=== PATIENT | female | born 1995 | race Caucasian/White ===

== ENCOUNTER → 2020-11-06 | Outpatient (CLI) | payer BC, SELFPAY ==
[2020-11-09 03:07] LABS: Chlamydia By Nucleic Acid AMP Negative (Negative)
[2020-11-09 12:15] LABS: Gonococcus By Nucleic Acid AMP Negative (Negative)
[2020-11-09 15:44] LABS: HPV Reflexed? NOT INDICATED
== END | disposition home or self-care (01) ==
LOC: LABSPEC 15:40
PROVIDERS: Visit Provider Nurse Practitioner Women's Health
DX: Z12.4 Encounter for screening for malignant neoplasm of cervix (principal)
CPT/HCPCS: 87491; 87591; 88175; G0145

== ENCOUNTER 2021-05-24 13:28 | Outpatient (CLI) | payer BC, SELFPAY ==
[2021-05-24 14:02] LABS: Amphetamine Urine VISTA NEGATIVE (<1000 ng/mL); Barbiturate Urine VISTA NEGATIVE (< 200 ng/mL); Benzodiazepine Urine VISTA NEGATIVE (< 200 ng/mL); Cocaine Urine VISTA NEGATIVE (< 300 ng/mL); Ecstacy Urine VISTA NEGATIVE (< 500 ng/mL); Methadone Urine VISTA NEGATIVE (< 300 ng/mL); PCP Urine VISTA NEGATIVE (< 25 ng/mL); THC Urine VISTA NEGATIVE (< 50 ng/mL); Vista UDS pH Range 6
[2021-05-27 15:08] LABS: Chlamydia By Nucleic Acid AMP Negative (Negative)
[2021-05-27 20:52] LABS: Gonococcus By Nucleic Acid AMP Negative (Negative)
== END 2021-05-24 23:59 | disposition home or self-care (01) ==
LOC: LABSPEC 06-11 13:28
PROVIDERS: Visit Provider Obstetrics & Gynecology
DX: Z34.00 Encounter for supervision of normal first pregnancy, unspecified trimester (principal)
CPT/HCPCS: 80307; 87086; 87491; 87591

== ENCOUNTER → 2021-07-19 | Outpatient (CLI) | payer BC, SELFPAY ==
[2021-07-19 12:29] LABS: Absolute Lymphocyte Count 1.84 X10^3/uL (0.83-4.51); Absolute Neutrophil Count 7.1 X10^3/uL (2.0-7.7); Basophil# 0.05 X10^3/uL; Basophil% 0.5 % (0-1); Eosinophil# 0.18 X10^3/uL; Eosinophils% 1.8 % (0-5); Hematocrit 34.5 % (37-47); Lymphocyte # 1.84 X10^3/ul (0.83-4.51); Lymphocyte % 18.8 % (19-41); Mean Corp Hgb Conc 34.8 g/dL (32-36); Mean Corpuscular Hgb 30.6 pg (27.0-32.0); Mean Platelet Vol. 9.5 fl (6.2-12.0); Monocyte# 0.55 X10^3/uL; Monocyte% 5.6 % (0-10); NRBC Flagged by Analyzer 0 % (0-5); Neutrophil # 7.08 X10^3/uL (2.7-7.7); Neutrophil % 72.3 % (47-70); Platelet Count 252 K/mm3 (150-450); RBC Distribution Width CV 12.7 % (11.6-14.6); RBC Distribution Width SD 40.8 fl (35.1-43.9); Red Blood Count 3.92 M/mm3 (4.2-5.4); White Blood Count 9.8 K/mm3 (4.4-11.0)
[2021-07-19 14:11] LABS: HIV - WCH Non-Reactive (Nonreactive); Hepatitis B Surface Antigen Non-Reactive (Nonreactive); Hepatitis C Antibody Non-Reactive (Nonreactive); Rubella IgG Reactive (Nonreactive); Syphilis Antibodies Non-reactive
== END | disposition home or self-care (01) ==
LOC: PAVLAB 12:14
PROVIDERS: Obstetrics & Gynecology; Referring Provider Nurse Practitioner Women's Health; Visit Provider Nurse Practitioner Women's Health
DX: Z34.00 Encounter for supervision of normal first pregnancy, unspecified trimester (principal)
CPT/HCPCS: 36415; 85025; 86703; 86762; 86780; 86803; 86850; 86900; 86901; 87340

== ENCOUNTER 2021-09-20 17:25 | Emergency (ER) | payer BC, SELFPAY ==
[2021-09-20 17:26] VITALS: BP 123/75; PULSE 89; RESP 18; TEMP 36.6; O2SAT 99; BMI 23.0
--- NOTE | 2021-09-20 17:55 | NURSING ---
NO OLD EKGS
[2021-09-20 18:38] VITALS: PULSE 77; RESP 15; O2SAT 100
--- NOTE | 2021-09-20 19:23 | EDS_ITS ---
HPI History of Present Illness Chief Complaint: Chest Pain Informant: patient Onset/Context/Timing Onset: Weeks (1) Activity at onset: sudden Timing: Continuous Quality: Positive for Heaviness Location: Substernal and Right Parasternal Worsened By: - (Laying down) Relieved By: - (Sitting up) Associated Symptoms: Positive for Dyspnea, Cough, Acid Reflux and Palpitations; Negative for Nausea, Vomiting, Diaphoresis, Fever or Lightheadedness Narrative Narrative: Patient presents with chest pain that has been getting progressively worse over the past week. Patient describes it as a heaviness. Patient admits to some shortness of breath. Patient states she is approximately 22 weeks . Patient admits to a cough but denies any fevers. Patient states her chest pain is worse when she lays down and better when she sits up. Patient states the pain is over the substernal and bilateral parasternal area. Patient denies any nausea or vomiting. Patient denies any diaphoresis. Patient denies any lightheadedness or fevers. CVD Risk Factors: Positive for Family History 1' </=55; Negative for Hypertension, Diabetes, Hypercholesterolemia or Smoking PE Risk Factors: Negative for Recent Travel/Surgery, Recent Immobilization, Prior DVT or PE, Cancer or OCP + Smoking + >/=35 PFSH PFSH Medical History Influenza A Home Medications prenat.vits,sonia,rsd-jbjy-plsws 1 tab PO DAILY 05/13/21 [History Last Taken Unknown] Allergy/AdvReac Type Severity Reaction Status Date / Time No Known Allergies Allergy Verified 09/20/21 17:28 Family History Grandmother Breast cancer Father Heart disease Grandfather Heart disease Prostate cancer Surgical History History of eye surgery Social History adopted: No household members: spouse number of children: 0 current occupational status: employed current occupation: self - photography pets and animals: Yes (avoid litter box) pets and animals: cat(s) history of recent travel: Yes sexually active: Yes Smoking Status: Never smoker alcohol intake: current alcohol intake frequency: a few times a month details: not while substance use type: does not use well-balanced diet: daily or most days what type of physical activity do you participate in: running frequency: 1-2 times per week seatbelt use: always do you feel safe at home: Yes additional social history: - Felix Torres ROS ROS ED Constitutional Constitutional ED: Denies chills or fever(s) Eyes Eyes: Denies blurry vision or change in vision ENT ENT ED: Denies rhinorrhea or sore throat Cardiovascular Cardiovascular: Reports chest pain and palpitations Respiratory/Chest Respiratory/Chest: Reports dyspnea; Denies cough Gastrointestinal Gastrointestinal: Denies abdominal pain, nausea or vomiting Genitourinary Genitourinary ED: Denies dysuria or hematuria Musculoskeletal Musculoskeletal: Denies back pain or neck pain Integumentary Denies abscess or rash Neurologic Neurologic: Denies headache(s) or weakness Allergic/Immunologic Allergic/Immunologic ED: Denies mouth swelling or urticaria EXAM Physical Exam Const Vital Signs: 09/20/21 17:26 09/20/21 18:38 09/20/21 18:38 Temperature 97.9 F Temperature Source Temporal Pulse Rate 89 77 Respiratory Rate 18 15 Respiratory Effort Short of Breath Respiratory Pattern Normal Blood Pressure 123/75 H Blood Pressure Mean 91 Pulse Ox 99 100 Oxygen Delivery Method Room Air Room Air Positive well nourished and well developed General Appearance ED: well developed and NAD HEENT normocephalic and atraumatic Eyes PERRL and EOMs intact bilaterally Neck supple and no JVD Chest Wall palpation of chest normal Resp normal respiratory effort and clear to auscultation bilaterally Effort and Inspection: Negative for respiratory distress Cardio regular rate, regular rhythm and no murmurs GI normal to inspection, nondistended, normoactive bowel sounds, soft to palpation, non-tender and non-distended Extremity normal to inspection General Extremety ED: Negative for edema or tenderness General Extremity: Negative for edema Neuro oriented x3, CN's II-XII intact bilaterally and no sensory deficits noted Sensorium / Orientation: awake and alert Motor Exam: strength 5/5 throughout Psych mental status grossly normal MDM MDM MDM Narrative Medical decision making narrative: Patient was given IV fluids here. EKG was obtained. On my interpretation, it showed a normal sinus rhythm with a rate of 79. WI interval, QRS interval, and QTc intervals were all normal. [place] was normal. There are no acute ST or T wave changes. CBC was within normal limits. Comprehensive metabolic profile was within normal limits. High-sensitivity troponin was normal. Urinalysis does not show any evidence of urinary tract infection or hematuria. CTA of the chest was obtained. There is no evidence of pulmonary embolism or aortic dissection. Patient is feeling better on reevaluation. Patient was advised of her findings. Patient was instructed to follow-up with her primary care physician and HEAD NURSE in 5 to 7 days. Patient was instructed return if worse in any way. Patient understood and was agreeable with the plan. All questions were answered. Lab Data Attestation: I reviewed the patient's lab results. Labs: Laboratory Results - last 24 hr 09/20/21 09/20/21 09/20/21 18:37 18:37 19:46 WBC 7.2 RBC 3.28 L Hgb 10.1 L Hct 30.6 L MCV 93.3 MCH 30.8 MCHC 33.0 RDW Std Deviation 45.8 H RDW Coeff of Kamila 13.3 Plt Count 249 MPV 10.3 Immature Gran % (Auto) 1.000 H Neut % (Auto) 61.7 Lymph % (Auto) 28.0 [place] % (Auto) 7.2 Eos % (Auto) 1.7 Baso % (Auto) 0.4 Absolute Neuts (auto) 4.5 Absolute Lymphs (auto) 2.02 Nucleated RBC % 0 Sodium 137 Potassium 3.5 Chloride 107 Carbon Dioxide 24.0 Anion Gap 6 BUN 6 L Creatinine 0.57 Estim Creat Clear Calc 145.44 Est GFR (MDRD) Af Amer 165 Est GFR (MDRD) Non-Af 136 BUN/Creatinine Ratio 10.6 Glucose 77 Calcium 9.0 Total Bilirubin 0.20 AST 20 ALT 27 Alkaline Phosphatase 67 Troponin I High Sens < 3 L Total Protein 6.7 Albumin 3.0 L Globulin 3.7 Albumin/Globulin Ratio 0.8 L Urine Color Yellow Urine Clarity Sl Cldy Urine pH 7.0 Ur Specific [place] 1.010 Urine Protein Negative Urine Glucose (UA) Normal Urine Ketones 5 H Urine Occult Blood Negative Urine Nitrite Negative Urine Bilirubin Negative Urine Urobilinogen Normal Ur Leukocyte Esterase Negative Urine RBC 0 SEEN Urine WBC 0 SEEN Ur Squamous Epith Cells 0-5 SEEN Urine Bacteria 0 SEEN Urine Mucus 0 SEEN Radiography Diagnostic Testing: Clinical Impression(s) from Imaging Studies Chest CTA 09/20/21 19:28 IMPRESSION: No demonstrated pulmonary embolism or arterial dissection. Electronically Signed: Salo Lance MD at 20:36 EDT , EKG Initial EKG: Attestation: I personally reviewed and interpreted this EKG as follows: Interpretation: Sinus Rhythm (79) and No Acute Injury Pattern Prior EKG tracings: not available for review Prior: No Prior Discharge Plan Triage Chief Complaint: Chest Pain ED Provider: Napoleon Borden Dx/Rx/DC Orders Clinical Impression: Chest pain of uncertain etiology, Instructions: ED Chest Pain, Uncertain Cause Prescriptions: No Action prenat.vits,sonia,gfi-nmht-smiph Tablet 1 tab PO DAILY Primary Care Provider: Care Physician,No Primary Referrals: Chioma Weinstein MD [STAFF PHYSICIAN] - 3-5 Days Disposition Disposition: Home, Self Care
--- NOTE | 2021-09-20 19:27 | EKG12_ITS ---
Test Reason : CP Blood Pressure : / mmHG Vent. Rate : 079 BPM Atrial Rate : 079 BPM P-R Int : 144 ms QRS Dur : 070 ms QT Int : 372 ms P-R-T Axes : 036 030 036 degrees QTc Int : 426 ms Normal sinus rhythm Normal ECG Confirmed by SADE TILLMAN, THEODORE ([id number]), editor department JUDY VILLA ([id number]) on 09/25/2021 10:59:24 AM Referred By: KATHLEEN Confirmed By:THEODORE STUART MD
--- NOTE | 2021-09-20 19:28 | CT_ITS ---
EXAM: CT ANGIOGRAPHY CHEST WITHOUT AND WITH INTRAVENOUS CONTRAST CLINICAL INDICATION: Dyspnea Technologist Notes Other, SOB,CHEST HEAVINESS,PT 24 WEEKS AND WAS SHIELDED TECHNIQUE: Helically acquired angiography images were obtained of the chest without and with intravenous contrast. This CT exam was performed using one or more of the following dose reduction techniques: automated exposure control, adjustment of the mA and/or kV according to patient size, and/or use of iterative reconstruction technique. This report was created using Room report generation technology. MIP reconstructed images were created and reviewed. CONTRAST: IV 100mL Isovue-370 RADIATION DOSE: CTDIvol = 11.27 mGy, DLP = 269.86 mGy-cm COMPARISON: None. FINDINGS: PULMONARY ARTERIES: No demonstrated pulmonary embolism or arterial dissection. AORTA: Unremarkable. Normal in caliber. No evidence of dissection. GREAT VESSELS OF AORTIC ARCH: Unremarkable. Normal in caliber. No evidence of dissection. LUNGS AND PLEURAL SPACES: Unremarkable. No mass. No consolidation or edema. No pleural effusion or thickening. No pneumothorax. HEART: Unremarkable. Heart size is normal. No pericardial effusion. No signs of right heart strain, ratio of right ventricle to left ventricle measures less than 1. MEDIASTINUM: Unremarkable. No mediastinal or hilar adenopathy. Esophagus is unremarkable. No hiatal hernia. THYROID: Unremarkable. No thyroid lesions. BONES/JOINTS: Unremarkable. No suspicious lytic or blastic abnormality. CT/CTA Chest W/WO Contrast IMPRESSION: No demonstrated pulmonary embolism or arterial dissection. Electronically Signed: Salo Lance MD at 20:36 EDT ,
[2021-09-20] MEDS: 0.9% Normal Saline 1,000 ML 1000 ML IV (19:38)
[2021-09-20 19:56] LABS: Absolute Lymphocyte Count 2.02 X10^3/uL (0.83-4.51); Absolute Neutrophil Count 4.5 X10^3/uL (2.0-7.7); Basophil# 0.03 X10^3/uL; Basophil% 0.4 % (0-1); Eosinophil# 0.12 X10^3/uL; Eosinophils% 1.7 % (0-5); Hematocrit 30.6 % (37-47); Hemoglobin 10.1 g/dL (12.0-15.0); Lymphocyte # 2.02 X10^3/ul (0.83-4.51); Mean Corpuscular Hgb 30.8 pg (27.0-32.0); Mean Corpuscular Volume 93.3 fL (81-99); Mean Platelet Vol. 10.3 fl (6.2-12.0); Monocyte# 0.52 X10^3/uL; Monocyte% 7.2 % (0-10); NRBC Flagged by Analyzer 0 % (0-5); Neutrophil # 4.45 X10^3/uL (2.7-7.7); Neutrophil % 61.7 % (47-70); Platelet Count 249 K/mm3 (150-450); RBC Distribution Width CV 13.3 % (11.6-14.6); RBC Distribution Width SD 45.8 fl (35.1-43.9); Red Blood Count 3.28 M/mm3 (4.2-5.4); White Blood Count 7.2 K/mm3 (4.4-11.0)
[2021-09-20 20:05] LABS: Bacteria 0 SEEN /hpf (None Seen); Mucous, Urine 0 SEEN /hpf (<or=2+); Red Blood Cells-Urine 0 SEEN /hpf (0-5); White Blood Cells 0 SEEN /hpf (0-5)
[2021-09-20 20:16] LABS: ALB/GLOB Ratio 0.8 RATIO (0.9-2.4); AST(SGOT) 20 U/L (15-37); Alanine Aminotransfer ALT/SGPT 27 U/L (13-56); Alkaline Phosphatase 67 U/L (45-117); Anion Gap 6 (5-15); BUN 6 mg/dL (7-18); BUN/Creat Ratio 10.6 RATIO (10-20); Chloride 107 mmol/L (98-107); Creatinine, Serum 0.57 mg/dL (0.55-1.02); EST Glomerular Filtration Rate 136 mL/min (>60); Est Glom Filt Rate - Afr Amer 165 mL/min (>60); Estimated Creatinine Clearance 145.44 ml/min; Globulin 3.7 g/dL (2.2-4.2); Glucose 77 mg/dL (74-106); Potassium 3.5 mmol/L (3.5-5.1); Protein, Total 6.7 g/dL (6.4-8.2); Sodium Level 137 mmol/L (136-145); Troponin-I HS < 3 pg/mL (3.0-54.0)
[2021-09-20 20:22] LABS: Glucose, Dipstick Normal (Normal); Ketone-Dipstick 5 mg/dl (Negative); Leukocyte Esterase-Dipstick Negative /ul (Negative); Nitrite-Dipstick Negative (Negative); Occult Blood-Urine Negative /ul (Negative); Protein-Dipstick Negative (Negative); Urine Bilirubin Dipstick Negative (Negative); Urine Urobilinogen Normal (Normal)
[2021-09-20 20:24] LABS: Color, Urine Yellow (Yellow); Urine Clarity Sl Cldy (Clear)
[2021-09-20 21:05] LABS: Squamous Epithelial Cells - UA 0-5 SEEN /hpf (5-10)
[2021-09-20 21:24] VITALS: PULSE 73; RESP 17; O2SAT 100
== END 2021-09-20 21:25 | disposition home or self-care (01) ==
PROVIDERS: Emergency Provider Emergency Medicine; Visit Provider Emergency Medicine
DX: O99.891 Other specified diseases and conditions complicating pregnancy (principal); R07.9 Chest pain, unspecified; R06.02 Shortness of breath; Z3A.22 22 weeks gestation of pregnancy; Z82.49 Family history of ischemic heart disease and other diseases of the circulatory system
CPT/HCPCS: 71275; 80053; 81001; 84484; 85025; 87428; 93005; 96360; 96361; 99283; Q9967

== ENCOUNTER → 2021-10-09 | Outpatient (CLI) | payer BC, SELFPAY ==
[2021-10-09 09:53] LABS: Absolute Lymphocyte Count 1.58 X10^3/uL (0.83-4.51); Absolute Neutrophil Count 3.7 X10^3/uL (2.0-7.7); Basophil# 0.04 X10^3/uL; Basophil% 0.7 % (0-1); Eosinophils% 1.7 % (0-5); Hematocrit 30.8 % (37-47); Lymphocyte # 1.58 X10^3/ul (0.83-4.51); Lymphocyte % 26.4 % (19-41); Mean Corp Hgb Conc 32.5 g/dL (32-36); Mean Corpuscular Hgb 30.4 pg (27.0-32.0); Mean Corpuscular Volume 93.6 fL (81-99); Mean Platelet Vol. 9.6 fl (6.2-12.0); Monocyte% 6.7 % (0-10); NRBC Flagged by Analyzer 0 % (0-5); Neutrophil # 3.71 X10^3/uL (2.7-7.7); Platelet Count 212 K/mm3 (150-450); RBC Distribution Width CV 13.1 % (11.6-14.6); RBC Distribution Width SD 44.5 fl (35.1-43.9); Red Blood Count 3.29 M/mm3 (4.2-5.4)
[2021-10-09 10:06] LABS: Glucose Challenge Gest 1H 50g 175 mg/dL (70-140)
== END | disposition home or self-care (01) ==
LOC: PAVLAB 09:33
PROVIDERS: Referring Provider Obstetrics & Gynecology; Visit Provider Obstetrics & Gynecology
DX: Z34.90 Encounter for supervision of normal pregnancy, unspecified, unspecified trimester (principal)
CPT/HCPCS: 36415; 82950; 85025

== ENCOUNTER → 2021-10-16 | Outpatient (CLI) | payer BC, SELFPAY ==
[2021-10-16 08:42] LABS: Glucose GTT-Gestation. Fasting 84 mg/dL (<105)
[2021-10-16 10:04] LABS: Glucose GTT-Gestational 1 Hr 173 mg/dL (<190)
[2021-10-16 11:05] LABS: Glucose GTT-Gestational 2 Hr 139 mg/dL (<165)
[2021-10-16 11:39] LABS: Glucose GTT-Gestational 3 Hr 125 L (<145)
== END | disposition home or self-care (01) ==
PROVIDERS: Referring Provider Obstetrics & Gynecology; Visit Provider Obstetrics & Gynecology
DX: R69 Illness, unspecified (principal)
CPT/HCPCS: 82951; 82952

== ENCOUNTER → 2021-12-18 | Outpatient (CLI) | payer BC, SELFPAY | END | disposition home or self-care (01) | LOC: LABSPEC 16:54 | PROVIDERS: Visit Provider Registered Nurse | DX: Z36.85 Encounter for antenatal screening for Streptococcus B (principal) | CPT/HCPCS: 87081 ==

== ENCOUNTER → 2021-12-30 | Outpatient (CLI) | payer BC, SELFPAY ==
--- NOTE | 2021-12-30 08:27 | US_ITS ---
STUDY: SECOND AND THIRD TRIMESTER OBSTETRICAL ULTRASOUND - LIMITED REASON FOR EXAM: Female, 26 years old growth LMP: 04/10/2021. PRIOR ULTRASOUND: None. TECHNIQUE: Transabdominal TECHNICAL QUALITY: Adequate. FINDINGS: There is a single intrauterine fetus. The fetus is in a cephalic presentation. There is demonstrated cardiac activity with a heart rate of 132 bpm. There is a normal amniotic fluid volume. The largest amniotic fluid pocket measures 3.38 cm. The amniotic fluid index (NGOZI) is 8.29 cm. The placenta is anterior in location and is not low lying. There are Grade 1 placental changes. The cervix was not measured due to the head positioning. BIOMETRY: BPD: 8.84 cm: 35 weeks, 5 days HC: 32.8 cm: 37 weeks, 2 days AC: 34.02 cm: 37 weeks, 6 days FL: 7.18 cm: 37 weeks, 5 days Age by LMP: 37 weeks, 5 days. ADRIÁN by LMP: 01/15/2022. age by current US: 37 weeks, 1 days. ADRIÁN by current US: 01/19/2022. Estimated weight: 3191 grams, +/- 479 grams, 51 percentile. US/OB Limited With Biometrics IMPRESSION: Single live intrauterine gestation with a mean gestational age of 37 weeks and 1 day. Electronically Signed: Grayson Sanders MD at 15:26 EDT ,
== END | disposition home or self-care (01) ==
LOC: OPUS 08:23
PROVIDERS: Referring Provider Obstetrics & Gynecology; Visit Provider Obstetrics & Gynecology
DX: O26.843 Uterine size-date discrepancy, third trimester (principal); Z3A.37 37 weeks gestation of pregnancy
CPT/HCPCS: 76816

== ENCOUNTER → 2022-01-08 | Outpatient (CLI) | payer BC, SELFPAY ==
--- NOTE | 2022-01-08 10:38 | US_ITS ---
STUDY: SECOND AND THIRD TRIMESTER OBSTETRICAL ULTRASOUND - LIMITED REASON FOR EXAM: Female, 26 years old low NGOZI LMP: 04/10/2021 PRIOR ULTRASOUND: None. TECHNIQUE: Standard TECHNICAL QUALITY: Adequate. FINDINGS: There is a single intrauterine fetus. The fetus is in a cephalic presentation. There is demonstrated cardiac activity with a heart rate of 137 bpm. There is a normal amniotic fluid volume. The largest amniotic fluid pocket measures 2.7 cm. The amniotic fluid index (NGOZI) is 8.07 cm. The placenta is There are Grade 0 placental changes. Cervix is not imaged. Placenta is anterior and not low-lying. Adnexa are not visualized. age by prior ultrasound 38 weeks 3 days. Estimated date of delivery by prior ultrasound 01/19/2022. age by LMP 39 weeks 0 days. ADRIÁN by LMP 01/15/2022. US/OB Limited (No Biometrics) IMPRESSION: Single viable intrauterine gestation in cephalic presentation. cardiac activity observed at 1 37 bpm. NGOZI 8.06 which is at the lower limits of normal. Electronically Signed: Geo Kat MD, ZAK at 11:37 EDT ,
== END | disposition home or self-care (01) ==
LOC: US 10:26
PROVIDERS: Referring Provider Obstetrics & Gynecology; Visit Provider Obstetrics & Gynecology
DX: Z34.93 Encounter for supervision of normal pregnancy, unspecified, third trimester (principal)
CPT/HCPCS: 76815

== ENCOUNTER 2022-01-22 07:00 | Inpatient (IN) | payer BC, SELFPAY ==
[2022-01-22] VITALS (47 sets, daily range): BP systolic 109–137; BP diastolic 67–94; PULSE 70–98; TEMP 36.4–37.6; O2SAT 97–100; BMI 27.3
[2022-01-22] MEDS: Lactated Ringers 1,000 ML 50 ML IV (07:40)
[2022-01-22 07:58] LABS: Absolute Lymphocyte Count 1.96 X10^3/uL (0.83-4.51); Absolute Neutrophil Count 6.1 X10^3/uL (2.0-7.7); Basophil# 0.03 X10^3/uL; Basophil% 0.3 % (0-1); Eosinophils% 1.1 % (0-5); Hematocrit 32.8 % (37-47); Hemoglobin 10.9 g/dL (12.0-15.0); Lymphocyte # 1.96 X10^3/ul (0.83-4.51); Lymphocyte % 22.4 % (19-41); Mean Corp Hgb Conc 33.2 g/dL (32-36); Mean Corpuscular Hgb 29.1 pg (27.0-32.0); Mean Corpuscular Volume 87.5 fL (81-99); Mean Platelet Vol. 12.2 fl (6.2-12.0); Monocyte# 0.51 X10^3/uL; Monocyte% 5.8 % (0-10); NRBC Flagged by Analyzer 0 % (0-5); Neutrophil # 6.06 X10^3/uL (2.7-7.7); Neutrophil % 69.4 % (47-70); Platelet Count 219 K/mm3 (150-450); RBC Distribution Width CV 14.4 % (11.6-14.6); RBC Distribution Width SD 45.8 fl (35.1-43.9); Red Blood Count 3.75 M/mm3 (4.2-5.4); White Blood Count 8.8 K/mm3 (4.4-11.0)
[2022-01-22] MEDS: miSOPROStol 50 MCG TABLET BUCCAL (08:17)
--- NOTE | 2022-01-22 08:21 | HP.PCM.OB_ITS ---
HPI - General General Date of Admission: 01/22/22 HPI Narrative RONEY TORRES, is a 26 F who presents to labor and delivery for induction of labor at 41 weeks. course complicated by anemia on iron supplementation. Maternal Data Information ADRIÁN Calculator Estimated Delivery Date Method Current WG Current Estimate 01/15/22 Ultrasound #1 41w 0d Other Estimates 12/13/21 LMP (Uncertain) 45w 5d Final ADRIÁN Source: US <20 weeks Gestational age: 41 PFSH PFSH Medical History Influenza A Home Medications prenat.vits,sonia,sxw-nmyv-jfyks 1 tab PO DAILY Check with primary doctor 05/13/21 [History Last Taken 01/19/22] iron fum,pscplx 125 mg-folic acid 1 mg-vit C 40 mg-niacin 3 mg capsule (Integra F) 1 cap PO DAILY Check with primary doctor 01/22/22 [History Last Taken 01/21/22] Allergy/AdvReac Type Severity Reaction Status Date / Time No Known Allergies Allergy Verified 01/22/22 07:50 Family History Grandmother Breast cancer Father Heart disease Grandfather Heart disease Prostate cancer Surgical History History of eye surgery Social History adopted: No household members: spouse number of children: 0 current occupational status: employed current occupation: self - photography pets and animals: Yes (avoid litter box) pets and animals: cat(s) history of recent travel: Yes sexually active: Yes Smoking Status: Never smoker alcohol intake: current alcohol intake frequency: a few times a month details: not while substance use type: does not use well-balanced diet: daily or most days what type of physical activity do you participate in: running frequency: 1-2 times per week seatbelt use: always do you feel safe at home: Yes additional social history: - Felix Torres History 1 Elective abortions Hx Para 0 Spontaneous abortions Hx # Term Pregnancies Ectopic pregnancies Hx # Pregnancies Multiple births # of living children Visit Details Expected Delivery Route/Plan Labor Preferences- CB/BF classes: declined labor support person: felix mom- nicki (from [place]) labor intervention preferences: none pain management options preferred: epidural cut cord/dad catch: yes : pumping PP control planned: condom discussed possible routes of delivery and associated risks: [] special requests: [] Plans Covid status: declined Flu vaccine: declined Tdap vaccine: declined Rhogam: na LARC form signed: na movement and labor precautions reviewed. Problem list reviewed and updated with the most current plan of care details and appropriate orders placed. Relevant counseling for the gestational age provided. Continue routine care and follow up unless otherwise noted in visit notes/problem list details OB Flowsheet Initial Weight: Not Recorded Date -?-?-?-?-?-?-?-?-?-?-?-?- EGA Weight BP Urine Prot -?-?-?-?-?-?-?-?-?-?-?-?- Glucose FHR FuHt Pres Dilation -?-?-?-?-?-?-?-?-?-?-?-?- Effaced St Visit Note 05/24/21 -?-?-?-?-?-?-?-?-?-?-?-?- 6w 2d 144 lb 122/86 -?-?-?-?-?-?-?-?-?-?-?-?- -?-?-?-?-?-?-?-?-?-?-?-?- JV- CRL difficul t to completely see . only measuring 6w2d. would like to rpt scan in 2 weeks. JV- CRL difficult to complet avery see . only measuring 6w2d. would like to rpt scan in 2 weeks. polycystic appearing ovaries seen on scan 06/12/21 -?-?-?-?-?-?-?-?-?-?-?-?- 9w 0d 141 lb 2 oz 111/71 Nega tive -?-?-?-?-?-?-?-?-?-?-?-?- Negative 189 -?-?-?-?-?-?-?-?-?-?-?-?- JV- CRL now john ures 9 weeks 4 days. pt reassured. will not change set due date. pt declines genetic screening. needs new ob labs. 07/19/21 -?-?-?-?-?-?-?-?-?-?-?-?- 14w 2d 146 lb 2 oz 128/86 Nega tive -?-?-?-?--?-?-?-?-?-?-?-?- Negative 163 -?-?-?-?-?-?-?-?-?-?-?-?- MH-No Vb, LOF. P NL today. Brief US to confirm active IUP 08/16/21 -?-?-?-?-?-?-?-?-?-?-?-?- 18w 2d 147 lb Negative -?-?-?-?-?-?-?-?-?-?-?-?- Negative 157 -?-?-?-?-?-?-?-?-?-?-?-?- JV- no lof, vagi nal bleeding or cramping. anatomy scan ordered for next week. 09/13/21 -?-?-?-?-?-?-?-?-?-?-?-?- 22w 2d 149 lb 114/78 Negative -?-?-?-?-?-?-?-?-?-?-?-?- Negative 150 -?-?-?-?-?-?-?-?-?-?-?-?- SM- no vb lof go od fm no regular ctx 10/09/21 -?-?-?-?-?-?-?-?-?-?-?-?- 26w 0d 156 lb 112/60 Negative -?-?-?-?-?-?-?-?-?-?-?-?- Negative 152 -?-?-?-?-?-?-?-?-?-?-?-?- JV- pt failed gl [place] at level of 175. option to skip gtt and do testing offered and declined. will order 3 hr. and start iron. 10/30/21 -?-?-?-?-?-?-?-?-?-?-?-?- 29w 0d 158 lb 4 oz 118/72 Nega tive -?-?-?-?-?-?-?-?-?-?-?-?- Negative 133 30 -?-?-?-?-?-?-?-?-?-?-?-?- JV- normal gtt. pt worried parents in [place] will miss delivery. wants to discuss IOL. pt informed of acog guidelines, 11/13/21 -?-?-?-?-?-?-?-?-?-?-?-?- 31w 0d 160 lb 6 oz 110/62 Nega tive -?-?-?-?-?-?-?-?-?-?-?-?- Negative 130 32 -?-?-?-?-?-?-?-?-?-?-?-?- JV-no lof, v harshad nal bleeding, or dec fm. 11/29/21 -?-?-?-?-?-?-?-?-?-?-?-?- 33w 2d 161 lb 4 oz 123/81 Nega tive -?-?-?-?-?-?-?-?-?-?-?-?- Negative 46 32 -?-?-?-?-?-?-?-?-?-?-?-?- JV- no lof, vagi nal bleeding, or dec fm. 12/12/21 -?-?-?-?-?-?-?-?-?-?-?-?- 35w 1d 166 lb 114/78 -?-?-?-?-?-?-?-?-?-?-?-?- 130 35 Cephalic -?-?-?-?-?-?-?-?-?-?-?-?- SM- no vb lof go od fm no regualr ctx 12/18/21 -?-?-?-?-?-?-?-?-?-?-?-?- 36w 0d 167 lb -?-?-?-?-?-?-?-?-?-?-?-?- 140 36 Cephalic 0 -?-?-?-?-?-?-?-?-?-?-?-?- 20 -2 LC- no vb, lof or ctx. good fm. gbs collected. labor precautions provided. 12/27/21 -?-?-?-?-?-?-?-?-?-?-?-?- 37w 2d 165 lb 8 oz 136/85 Nega tive -?-?-?-?-?-?-?-?-?-?-?-?- Negative 135 33 Cephalic 0 -?-?-?-?-?-?-?-?-?-?-?-?- JV-ngozi is 10 bu t on bedside ac and hc are measuring 34 weeks. Nst reactive. plan for official growth scan thursday. 01/03/22 -?-?-?-?-?-?-?-?-?-?-?-?- 38w 2d 170 lb 122/88 Negative -?-?-?-?-?-?-?-?-?-?-?-?- Negative 144 35 Cephalic 0 -?-?-?-?-?-?-?-?-?-?-?-?- SM- no vb lof go od fm no regualr ctx bedside ngozi 6 cm ordered repeat for next week 01/10/22 -?-?-?-?-?-?-?-?-?-?-?-?- 39w 2d 169 lb 2 oz 132/85 Nega tive -?-?-?-?-?-?-?-?-?-?-?-?- Negative 145 35 Cephalic 0 -?-?-?-?-?-?-?-?-?--?-?-?- -2 JV- no l of, vaginal bleeding, or dec fm. cx still very closed and firm. will re-assess. next week. NGOZI 2 days ago was 8 and growth scan 51st% 01/15/22 -?-?-?--?-?-?-?-?-?-?-?-?- 40w 0d 170 lb 6 oz 118/78 -?-?-?-?-?-?-?-?-?-?-?-?- 143 38 Cephalic 0 -?-?-?-?-?-?-?-?-?-?-?-?- LC- doing well. active movement. no lof,vb or ctx. cervix unchanged. discussed IOL at 41 weeks and accepts. NST FHR Rate Baby A Variability:: Moderate Accelerations:: 15 x 15 Decelerations:: None NST Reactive:: Yes FHR Category:: Category I Uterine Activity:: pt not feeling uterine contractions. irregular ctx pttn. q5-6 minutes ROS Cardiovascular Cardiovascular: Denies abdominal pain, chest pain, diaphoresis, dyspnea, edema or fatigue Respiratory/Chest Respiratory/Chest: Denies change in mental status, chest congestion, chest tightness, cough, shortness of breath at rest, shortness of breath with exertion, breast mass, breast pain, breast skin changes, breast swelling, change in breast shape or nipple discharge Gastrointestinal Gastrointestinal: Denies diarrhea, hemorrhoids, nausea, vomiting or weight changes Genitourinary Genitourinary: Denies abdominal discomfort, burning urination, change in libido, change in urinary stream, contractions, difficulty urinating, dysuria, movement, low back pain, urinary frequency, urinary hesitancy, urinary incontinence or urinary urgency Musculoskeletal Musculoskeletal: Reports none Integumentary Integumentary: Reports none Neurologic Neurologic: Reports none Psychiatric Psychiatric: Reports none Endocrine Endocrinology: Reports none Hematologic/Lymphatic Hematologic/Lymphatic: Reports none Allergic/Immunologic Allergic/Immunologic: Reports none Vital Signs Vital Signs Vital Signs: 01/22/22 07:25 01/22/22 07:25 01/22/22 07:26 Temperature 99.0 F Temperature Source Pulse Rate 90 Blood Pressure 134/92 H BP Systolic 134 BP Diastolic 92 01/22/22 07:26 Temperature Temperature Source Temporal Pulse Rate Blood Pressure BP Systolic BP Diastolic Weight Weight: 169 lb 6 oz Body Mass Index (BMI) 27.3 Physical Exam Const alert, oriented x3 and no apparent distress General Appearance: cooperative, comfortable and well kempt; Negative for in distress Orientation / Consciousness: awake and oriented to person Exam Limitations: no limitations HEENT normocephalic Mouth: oral and palatal mucosa normal Neck full ROM and thyroid normal Chest inspection of chest normal Resp normal respiratory effort Effort and Inspection: able to speak in complete sentences and symmetric chest movement Cardio regular rate Peripheral Pulses: pulses 2+ throughout GI normal to inspection, nondistended, normoactive bowel sounds Inspection: gravid no CVA tenderness and appearance of the vagina normal External Female Exam: normal appearance of the urethra; Negative for external lesion OB / External & Speculum: external exam normal Manual OB Exam: estimated gestational size appropriate and presentation cephalic Uterus Palpation: Negative for uterus tender Extremity normal to inspection Skin no rashes or lesions noted Neuro deep tendon reflexes 2+ bilaterally and gait normal Motor Exam: strength 5/5 throughout and clonus absent Psych Activity / Motor Behavior: appropriate eye contact Speech: normal speech Labs Labs Labs: Blood Type O POSITIVE Antibody Screen NEGATIVE Hct 32.8 % (37-47) L Hgb 10.9 g/dL (12.0-15.0) L Obstetrics US Syphilis Total Ab Non-reactive Rubella IgG Antibody Reactive (Nonreactive) Hep Bs Antigen Non-Reactive (Nonreactive) Chlamydia DNA ([place]) Negative (Negative) Neisseria gonorrhoeae DNA ([place]) Negative (Negative) HIV 1&2 Antibody Non-Reactive (Nonreactive) Glucose 1 Hr 50 gm 175 mg/dL (70-140) H Assessment & Plan (1) : QUALIFIERS: Weeks of gestation: 40 weeks Qualified Code(s): Z3A.40 - 40 weeks gestation of COMMENT: gbs negative. anatomy nl addtnl views nl, genetic and carrier, ntd screen declined. (2) Supervision of normal first : QUALIFIERS: Trimester: third trimester Qualified Code(s): Z34.03 - Encounter for supervision of normal first , third trimester COMMENT: PRR ADRIÁN 01/15/22 boy Carter Spouse:Felix (3) Anemia affecting : COMMENT: hgb 10.0 stable, on iron (4) Abnormal glucose affecting : COMMENT: 1hrgtt 175, 3hrgtt nl (5) NGOZI (amniotic fluid index) borderline low: COMMENT: repeat ngozi ordered. NGOZI=8, borderline normal. fundal heights c/w EGA on 01/15 (6) Encounter for induction of labor: COMMENT: IOL for 41weeks PLAN: -admit for IOL, Cytotec for cervical ripening per protocol -routine admission orders -reactive NST, reassuring maternal and status. Dr. Kaufman updated on POC and agrees with above.
[2022-01-22] MEDS: LACTATED RINGERS 500 ML 999 ML IV (13:32)
[2022-01-22] MEDS: fentaNYL-bupivacaine (epidural) 100 ML BAG EPIDURAL ×3 (14:29→23:36)
[2022-01-22] MEDS: 0.9% Normal Saline Single 100 ML IV.SOLN. INTRA-UTER (17:02)
[2022-01-22] MEDS: Lactated Ringers 1,000 ML 200 ML IV ×2 (17:50→22:45)
[2022-01-22] MEDS: Ondansetron 4 MG/2 ML Vial IV (22:31)
--- NOTE | 2022-01-22 23:03 | PN.OBGYN_ITS ---
Objective Data Objective Data Vital Signs: Vital Signs Temp Pulse BP Pulse Ox 99.0 F 81 124/81 H 99 01/22/22 22:43 01/22/22 22:43 01/22/22 22:43 01/22/22 22:42 Weight: 169 lb 6 oz Body Mass Index (BMI) 27.3 Intake & Output: Intake and Output for Last 24 Hours 01/20/22 01/21/22 01/22/22 23:59 23:59 23:59 Intake Total 2473.33 / 2473.33 Output Total 400 / 400 Balance 2073.33 / 2073.33 Lab / Micro Data Result Diagrams: 01/22/22 07:35 Labs: Laboratory Results - last 24 hr 01/22/22 07:35: WBC 8.8, RBC 3.75 L, Hgb 10.9 L, Hct 32.8 L, MCV 87.5, MCH 29.1, MCHC 33.2, RDW Std Deviation 45.8 H, RDW Coeff of Kamila 14.4, Plt Count 219, MPV 12.2 H, Immature Gran % (Auto) 1.000 H, Neut % (Auto) 69.4, Lymph % (Auto) 22.4, [place] % (Auto) 5.8, Eos % (Auto) 1.1, Baso % (Auto) 0.3, Absolute Neuts (auto) 6.1, Absolute Lymphs (auto) 1.96, Nucleated RBC % 0 01/22/22 07:35: Blood Type O POSITIVE, Antibody Screen NEGATIVE NST FHR Rate Baby A Baseline: 130 Variability:: Moderate Accelerations:: 15 x 15 Decelerations:: Early NST Reactive:: Yes FHR Category:: Category I Uterine Activity:: q2-3 minutes Assessment & Plan (1) Encounter for induction of labor: COMMENT: IOL for 41weeks (2) NGOZI (amniotic fluid index) borderline low: COMMENT: repeat ngozi ordered. NGOZI=8, borderline normal. fundal heights c/w EGA on 01/15 (3) Anemia affecting : COMMENT: hgb 10.0 stable, on iron (4) : QUALIFIERS: Weeks of gestation: 40 weeks Qualified Code(s): Z3A.40 - 40 weeks gestation of COMMENT: gbs negative. anatomy nl addtnl views nl, genetic and carrier, ntd screen declined. (5) Supervision of normal first : QUALIFIERS: Trimester: third trimester Qualified Code(s): Z34.03 - Encounter for supervision of normal first , third trimester COMMENT: PRR ADRIÁN 01/15/22 boy Raul Spouse:Felix PLAN: Plan pt comfortable with epidural. tierney bulb out at 2220. intermittent nausea current tracing:cat 1 tracting FHT: 135 Moderate variability reactive no decelerations category I tracing. occ early decelerations [place]: Contractions reviewed tracing abnormalities since last note: [ ] A/P: 26 yo at 41.1 for postdates IOL. s/p cytotec 50mcg and tierney bulb. Active labor AROM for clear blood tinged fluid. 6cm/80/0 if ctx space to 6-7 minutes would add pitocin
[2022-01-23] VITALS (29 sets, daily range): BP systolic 105–138; BP diastolic 64–95; PULSE 70–109; RESP 16; TEMP 36.7–38.1; O2SAT 97–100
[2022-01-23] MEDS: Acetaminophen 500 MG Tablet PO (01:23)
[2022-01-23] MEDS: Oxytocin 15 Units/NS 250ml 15 UNITS/250 ML IV.SOLN 2 UNITS IV (03:00)
[2022-01-23] MEDS: LACTATED RINGERS 500 ML 999 ML IV (03:40)
[2022-01-23] MEDS: Lactated Ringers 1,000 ML 200 ML IV (04:17)
[2022-01-23] MEDS: fentaNYL-bupivacaine (epidural) 100 ML BAG EPIDURAL (04:35)
--- NOTE | 2022-01-23 05:36 | PN_ITS ---
Progress Note [employer] called at 0500 to report that the tracing has been showing late, early, and variable decels since about 3:30 in the morning. Pitocin was tried but had to be turned off. She has been unchanged since 11 pm last night. After thorough review of the tracing it is decided to proceed with a primary section both for failure to progress and for intolerance to pitoin. current tracing: FHT: currently Moderate variability reactive with 2 late decelerations out of 7 contractions. decelerations category II tracing [place]: q 2-5 min Contractions A/P: intolerance to pitocin and failure to progress plan for primary section now. the risks, benefits, and alternatives were discussed with the patient. option to wait longer and restart pitocin later this am discussed with the patient. I informed her that we do not have a lot hope that this will not happen again when starting pitocin again as I suspect placental insufficiency
[2022-01-23] MEDS: Sodium Citrate/Citric Acid 30 ML UDC PO (05:37)
[2022-01-23] MEDS: Cefazolin 2 GM in 0.9% Normal Saline 100 ML IV (06:18)
[2022-01-23] MEDS: Oxytocin 15 Units/NS 250ml 15 UNITS/250 ML IV.SOLN 83 UNITS IV (06:58)
[2022-01-23] MEDS: Ketorolac 30 MG/ML Syringe IV ×3 (07:26→18:36)
[2022-01-23] MEDS: Acetaminophen 500 MG Tablet 1000 MG PO ×3 (07:40→18:36)
--- NOTE | 2022-01-23 08:21 | NURSING ---
Bedside report given to Rose Diamond RN at 0705; oncoming RN assuming care of pt at that time. Late entry charting due to pt care.
[2022-01-23] MEDS: Lactated Ringers 1,000 ML 100 ML IV (10:01)
--- NOTE | 2022-01-23 12:42 | OP.PCM_ITS ---
Assessment & Plan (1) NGOZI (amniotic fluid index) borderline low: COMMENT: repeat ngozi ordered. NGOZI=8, borderline normal. fundal heights c/w EGA on 01/15 (2) Abnormal glucose affecting : COMMENT: 1hrgtt 175, 3hrgtt nl (3) Anemia affecting : COMMENT: hgb 10.0 stable, on iron (4) : QUALIFIERS: Weeks of gestation: 40 weeks Qualified Code(s): Z3A.40 - 40 weeks gestation of COMMENT: gbs negative. anatomy nl addtnl views nl, genetic and carrier, ntd screen declined. (5) Supervision of normal first : QUALIFIERS: Trimester: third trimester Qualified Code(s): Z34.03 - Encounter for supervision of normal first , third trimester COMMENT: PRR ADRIÁN 01/15/22 caridad Carter Spouse:Felix Maternal Data Information ADRIÁN Calculator Estimated Delivery Date Method Current WG Current Estimate 01/15/22 Ultrasound #1 41w 1d Other Estimates 12/13/21 LMP (Uncertain) 45w 6d Final ADRIÁN: 01/15/22 Final ADRIÁN Source: [place] <20 weeks Gestational age: 41 weeks 1 day Details Operative Information Date of Procedure: 01/23/22 Pre-Operative Diagnosis: 41 weeks 1 day, failure to dilate and intolerance to labor Post-Operative Diagnosis: 41 weeks 1 day, failure to dilate and intolerance to labor Indications for : Sec. Arrest of Dilitation and - Classification: ULISES Procedure Type: low transverse economic development specialist #1: Sanjuana Mario Type of Anesthesia: Epidural Anesthesiologist: Cesar Martin Antibiotic Given: Ancef 2 grams IV x1 Drain: Tierney to straight drain Estimated Blood Loss: 500cc Findings Description of Procedure: The patient was admitted for Induction of labor on 01/22/22 for post dates . The cervix was closed at 7 am and she was given 50 mcg of buccal cytotec which achieved adequate contractions. at 6 pm she was found to be only 1 cm dilated. A tierney bulb was placed at this time. At 11 pm her catheter came out spontaneously and membranes were ruptured. At that time she was found to be 5 cm dilated. Throughout the night she continue to have frequent contractions but not changing cervix. Pitocin was given at around 3:00 am. At that time the heart rate started to show signs of late, early, and variable decels. The pitocin was stopped and irregular contractions with late and variable decelerations continued. At 5am the software support representative then called the attending physician to report that the patient was not changing her cervix and the tracing was non-reassuring. It was at that time that the patient was evaluated and the decision was made to proceed with a section. Epidural anesthesia was found to be adequate, Tierney catheter was in placed, and a vaginal prep was performed. The patient was placed in the dorsal supine position with leftward tilt. Patient was prepped and draped in the normal sterile fashion. Pfannenstiel skin incision was made with the scalpel and carried through to the underlying layer of fascia with the scalpel. Fascia was nicked in the midline and the incision extended laterally. The rectus bellies were dissected off superiorly and inferiorly with out complication both sharply and bluntly. The peritoneum was entered digitally. The incision was stretched and a low transverse uterine incision was made with the scalpel. The 's head was delivered atraumatically followed by the anterior and posterior shoulders without complication the rest of the infant delivered. The cord was clamped and cut and the infant was handed off to awaiting nurse. The placenta was delivered spontaneously immediately following and was noted to be intact and have a three-vessel cord. The uterus was exteriorized cleared of all clots and debris, and the incision was closed in a double layer closure using #1 vicryl and #1 Monocryl. The ovaries and fallopian tubes were noted to be within normal limits. The uterus was returned to the maternal abdomen and gutters were cleared of all clots and debris. The peritoneum was closed with 3-0 Monocryl in a running fashion. Gloves were changed prior to fascial closure. Fascia was closed with 0 PDS in a running fashion. Subcutaneous tissue was copiously irrigated and the skin was closed with 3-0 Monocryl in a subcuticular fashion. Mepilex dressing was applied without complication. Patient was taken to recovery in stable condition. It was discussed with the patient that based on the clinical information obtained during this encounter, combined with her his tory, at this time I would recommend either or rpt sections for future deliveries if further pregnancies are desired. Presentation: Positive for Vertex Amniotic Membrane Rupture Type: Artificial Time of Membrane Ruptured: 11:00 pm Amniotic Fluid Description: Lightly stained meconium Placental Delivery Description: Expressed Placenta Disposition: [facility] Cord Vessel Description: 3 Vessels Cord Entanglement: None Infant A Gender: Male (1 minute): 9 (5 minute): 9 Delayed Cord Clamping: No Complications Risks of Surgery Discussed w/Patient: Bleeding, Anesthesia Risks, Infection, Need for Future C-Sections and Injury to surrounding structure(s) including bowel and bladder Admit VTE Documentation VTE Present on Admission: Yes VTE Mechan Device Prophylaxis: SCD's VTE Pharm Prophylaxis Ordered: No Reason Prophylaxis Not Ordered: Procedure Not Indicated Multi Select Codes Urinary/Genital Urinary/Genital CPT Codes: [address] [facility]
--- NOTE | 2022-01-23 12:51 | DCINST_ITS ---
Discharge Instructions Diet Discharge Diet: No restrictions Activity Discharge Activity: May Not Drive (for 2 weeks or while taking narcotic pain medications.), May Shower and May Take a Tub Bath (in 7 days.) May resume sexual activity in: 4-6 weeks Weight Bearing Status: Full weight bearing Lifting Restrictions: 20 pounds Dressing / Incision Call your doctor if your incision/area has: Continuous Slow Oozing, Sudden Increased Bleeding, Increased Pain/ Swelling, Increased Redness and Foul Smelling Discharge Call your doctor if you observe: Fever of 101 or Higher and Using more than 1 pad per hour Suture Line Care: Avoid Pulling/Pushing and Avoid Pinching/Bending Cleanse incision/area with: Soap & Water and Keep Dressing Clean & Dry Follow Up Care Please Follow Up With: Eliana Kaufman DO When: Call [phone] to make an appointment for an incision check in 1-2 weeks. Test Results: Test results from this visit will be discussed in further detail at your follow- up appointment, if applicable. Discharge Plan Admission Admit Date/Time: 01/22/22 07:00 Primary Reason for Your Visit: section Attending Provider: Bita Rea Primary Care Provider: Sameera Ramos Primary Discharge Orders/Prescriptions Prescriptions: New naproxen 500 mg tablet 500 mg PO BID PRN PRN (Reason: Pain) Qty: 30 0RF No Action prenat.vits,sonia,[id number]-[id number] Tablet 1 tab PO DAILY Integra F 125-1-40-3 mg capsule 1 cap PO DAILY Rx Instructions: administer between meals Referrals / Follow Up: Care Physician,No Primary [Primary Care Provider] - Disposition Disposition (needs filled in before D/C Order can be placed): Home, Self Care
[2022-01-24] MEDS: Acetaminophen 500 MG Tablet 1000 MG PO ×4 (01:42→20:16)
[2022-01-24] MEDS: Ketorolac 30 MG/ML Syringe IV (01:42)
[2022-01-24] MEDS: 0.9% Saline Lock 10 ML Syringe IV ×3 (01:43→13:02)
[2022-01-24 04:40] VITALS: BP 133/83; PULSE 102; RESP 16; TEMP 36.8; O2SAT 98
[2022-01-24 05:57] LABS: Hemoglobin 6.1 g/dL (12.0-15.0); Mean Corp Hgb Conc 32.1 g/dL (32-36); Mean Corpuscular Volume 90.5 fL (81-99); Mean Platelet Vol. 10.9 fl (6.2-12.0); Platelet Count 144 K/mm3 (150-450); RBC Distribution Width CV 14.6 % (11.6-14.6); RBC Distribution Width SD 47.6 fl (35.1-43.9); White Blood Count 9.1 K/mm3 (4.4-11.0)
[2022-01-24 08:10] VITALS: BP 126/88; PULSE 91; RESP 16; TEMP 36.7; O2SAT 98
[2022-01-24] MEDS: Ibuprofen 600 MG Tablet PO ×3 (08:15→20:16)
[2022-01-24 08:40] LABS: Hematocrit 19.4 % (37-47); Hemoglobin 6.2 g/dL (12.0-15.0)
--- NOTE | 2022-01-24 11:19 | PCM.PN.OB ---
Subjective Subjective Patient is laying in bed comfortably without complaints. She states that she slept on an off during the night. Lochia is mild and pain is minimal. Her hg came back at a 6.1 this am but she denies feeling dizzy or short of breath. she denies abdominal pain or distention. Objective Data Objective Data Vital Signs: Vital Signs Temp Pulse Resp BP Pulse Ox O2 Del Method 98.2 F 102 H 16 133/83 H 98 Room Air 01/24/22 04:40 01/24/22 04:40 01/24/22 04:40 01/24/22 04:40 01/24/22 04:40 01/24/22 04:40 Oxygen Delivery Method Room Air Weight: 169 lb 6 oz Body Mass Index (BMI) 27.3 Intake & Output: Intake and Output for Last 24 Hours 01/22/22 01/23/22 01/24/22 23:59 23:59 23:59 Intake Total 2473.33 / 2473.33 3662.33 / 3662.33 Output Total 400 / 400 500 / 500 400 / 400 Balance 2073.33 / 2073.33 3162.33 / 3162.33 -400 / -400 Lab / Micro Data Result Diagrams: 01/24/22 08:30 Labs: Laboratory Results - last 24 hr 01/24/22 05:52: WBC 9.1, RBC 2.10 L, Hgb 6.1 L, Hct 19.0 L, MCV 90.5, MCH 29.0, MCHC 32.1, RDW Std Deviation 47.6 H, RDW Coeff of Kamila 14.6, Plt Count 144 L, MPV 10.9 01/24/22 08:30: Hgb 6.2 L, Hct 19.4 L ROS Constitutional Constitutional: Reports systems reviewed and no addt'l complaints, except as documented Cardiovascular Cardiovascular: Denies chest pain, dizziness, dyspnea or irregular heart rhythm Respiratory/Chest Respiratory/Chest: Denies cough, pain on inspiration or shortness of breath at rest Gastrointestinal Gastrointestinal: Denies abdominal pain, nausea or vomiting Genitourinary Genitourinary: Denies burning urination Musculoskeletal Musculoskeletal: Denies muscle cramps, muscle spasms or muscle weakness Neurologic Neurologic: Denies confusion, dizziness, headache(s) or lack of coordination Psychiatric Psychiatric: Denies anxiety, behavioral changes or depression Physical Exam HEENT normocephalic Resp normal respiratory effort and normal air movement GI soft to palpation, non-tender and non-distended Rectal Exam: other Other Details: Incision is clean, dry, and intact no CVA tenderness Extremity normal to inspection General Extremity: edema bilateral (trace ) Assessment & Plan (1) Status post section: COMMENT: marely caridad lance - SelinaV PLAN: Plan s/p LTCS PPD # 1 1. routine post care 2. breast feeding- support given 3. rh positive 4. rubella immune 5. anemia on 2 separate blood draws but no signs of internal bleeding and patient is asymptomatic. will start with iron infusion today and tomorrow. recheck hg in am.
[2022-01-24] MEDS: Senna/Docusate Sodium 1 Tablet PO (12:07)
[2022-01-24 15:29] VITALS: BP 134/83; PULSE 103; RESP 16; TEMP 36.6; O2SAT 98
[2022-01-24 20:15] VITALS: BP 134/90; PULSE 101; RESP 17; TEMP 36.9; O2SAT 99
[2022-01-24 20:30] VITALS: BP 123/72
[2022-01-25] VITALS (8 sets, daily range): BP systolic 112–127; BP diastolic 76–88; PULSE 74–95; RESP 16–19; TEMP 36.5–37; O2SAT 97–99
[2022-01-25] MEDS: Acetaminophen 500 MG Tablet 1000 MG PO ×3 (02:18→14:29)
[2022-01-25] MEDS: Ibuprofen 600 MG Tablet PO ×3 (02:18→14:29)
[2022-01-25] MEDS: 0.9% Saline Lock 10 ML Syringe IV (05:00)
[2022-01-25 05:15] LABS: Hematocrit 18.4 % (37-47); Mean Corp Hgb Conc 32.1 g/dL (32-36); Mean Corpuscular Hgb 28.9 pg (27.0-32.0); Mean Corpuscular Volume 90.2 fL (81-99); Mean Platelet Vol. 10.9 fl (6.2-12.0); POSITIVE COUNT YES; Platelet Count 170 K/mm3 (150-450); RBC Distribution Width CV 14.9 % (11.6-14.6); RBC Distribution Width SD 49.5 fl (35.1-43.9); Red Blood Count 2.04 M/mm3 (4.2-5.4); White Blood Count 9.4 K/mm3 (4.4-11.0)
[2022-01-25 05:16] LABS: Scan Indicated on CBC? Y/N YES- FLAGS NOTED
[2022-01-25 05:18] LABS: Hemoglobin 5.9 g/dL (12.0-15.0)
[2022-01-25] MEDS: Senna/Docusate Sodium 1 Tablet PO (08:19)
--- NOTE | 2022-01-25 09:56 | PCM.DC.SUM ---
Providers Date of Admission: 01/22/22 Primary Care Physician: No Primary Care Phys Reason For Visit: PRIMARY C SECTION Diagnosis Discharge Diagnosis (1) Status post section: Status: Acute Code(s): Z98.891 - History of uterine scar from previous surgery Plan s/p LTCS PPD # 1 1. routine post care 2. breast feeding- support given 3. rh positive 4. rubella immune 5. anemia on 2 separate blood draws but no signs of internal bleeding and patient is asymptomatic. will start with iron infusion today and tomorrow. recheck hg in am. Medications at Discharge Home Medications prenat.vits,sonia,fgo-lqaq-fwjph 1 tab PO DAILY Check with primary doctor 05/13/21 iron fum,pscplx 125 mg-folic acid 1 mg-vit C 40 mg-niacin 3 mg capsule (Integra F) 1 cap PO DAILY Check with primary doctor 01/22/22 naproxen 500 mg tablet 500 mg PO BID PRN PRN Pain #30 tabs 01/23/22 Hospital Course Operations section Summary of Care Provided Minutes Spent on Discharge: 20 Hospital Course: The patient was admitted to labor and delivery on 01/22/22 for induction of labor. She was unchanged after 6 hours and showed signs of intolerance to labor. A section was performed on HD#2. She had a 500cc ebl and dropped her hg to 6.1 on pod#1. On pod#2 she was found to have a hg of 5.9 and was transfused 1 unit of PRBC's. She was found to be stable later in the day and feeling well and the decision was made to dc to home on 01/25/22 afternoon. Weight / BMI Weight Weight: 169 lb 6 oz Body Mass Index (BMI) 27.3 ABG / Lab / Microbiology Data Result Diagrams: 01/25/22 05:08 Laboratory: Laboratory Results - last 24 hr 01/22/22 07:35: Crossmatch See Detail 01/25/22 05:08: WBC 9.4, RBC 2.04 L, Hgb 5.9 L*, Hct 18.4 L, MCV 90.2, MCH 28.9, MCHC 32.1, RDW Std Deviation 49.5 H, RDW Coeff of Kamila 14.9 H, Plt Count 170, MPV 10.9, Diff Path Review May foll D/C Instructions Discharge Diet: No restrictions May resume sexual activity in: 4-6 weeks Weight Bearing Status: Full weight bearing Call your doctor if your incision/area has: Continuous Slow Oozing, Sudden Increased Bleeding, Increased Pain/ Swelling, Increased Redness and Foul Smelling Discharge Call your doctor if you observe: Fever of 101 or Higher and Using more than 1 pad per hour Suture Line Care: Avoid Pulling/Pushing and Avoid Pinching/Bending Cleanse incision/area with: Soap & Water and Keep Dressing Clean & Dry Please Follow Up With: Eliana Kaufman DO When: Call [phone] to make an appointment for an incision check in 1-2 weeks. Meaningful Use Info Meaningful Use Diagnoses (Choose all that apply): None applicable Discharge Plan Admission Admit Date/Time: 01/22/22 07:00 Primary Reason for Your Visit: section Attending Provider: Bita Rea Primary Care Provider: Care Physician,Sameera Primary Discharge Orders/Prescriptions Prescriptions: New naproxen 500 mg tablet 500 mg PO BID PRN PRN (Reason: Pain) Qty: 30 0RF No Action prenat.vits,sonia,[id number]-khch-fslug Tablet 1 tab PO DAILY Integra F 125-1-40-3 mg capsule 1 cap PO DAILY Rx Instructions: administer between meals Referrals / Follow Up: Care Physician,No Primary [Primary Care Provider] - Disposition Disposition (needs filled in before D/C Order can be placed): Home, Self Care
[2022-01-25 11:56] LABS: Hematocrit 21.8 % (37-47); Hemoglobin 7.3 g/dL (12.0-15.0)
[2022-01-28 07:53] LABS: Pathologist Review Reviewed
== END 2022-01-25 19:15 | disposition home or self-care (01) | DRG 788 ==
PROVIDERS: Obstetrics & Gynecology; Admitting Provider Registered Nurse; Referring Provider Registered Nurse; Visit Provider Registered Nurse
DX: O48.0 Post-term pregnancy (principal); O76 Abnormality in fetal heart rate and rhythm complicating labor and delivery; O77.0 Labor and delivery complicated by meconium in amniotic fluid; Z3A.41 41 weeks gestation of pregnancy; Z37.0 Single live birth; O99.02 Anemia complicating childbirth
CPT/HCPCS: 59025; 59050; 85014; 85018; 85025; 85027; 86850; 86900; 86901; 86920; 99218; J1756; J7120; P9016; A4216; G0378; J2405

== ENCOUNTER → 2023-04-02 | Outpatient (CLI) | payer BC, SELFPAY ==
--- OUTSIDE RECORDS SUMMARY | 2023-04-02 10:38 | XMS RPT_ITS | CCD ---
Author Name Unknown Address [address] [place] [address] Organization [facility] Care Team Providers Care Service Center Appraiser Name Role Phone Unavailable Primary Care Provider Unavailabl e ROSANNA SANTOS Attending Unavailable LASHONDA GALEAS Referring Unavailable ROSANNA SANTOS Referring Unavailable Problems Problem Classification Problem Date Documented Da te Episodic/Chronic Coagulation and hemorrhagic disorders (1 source) Spontaneous ecchymoses; Translations: [Abnormal bruising] Onset: 07-28-2022 Episodic Other hematologic conditions (1 source) Personal history of diseases of the blood and blood-forming organs and certain disorders involving the immune mechanism; Translations: [History of anemia] Onset: 07-28-2022 Episodic Other injuries and conditions due to external causes (1 source) Contusion; Translations: [Other injury of unspecified body region, initial encounter] Episodic Other injuries and conditions due to external causes (1 source) Other injury of unspecified body region, initial encounter; Translations: [Bruising] Onset: 07-28-2022 Episodic Results Test Name Value Interpretation Reference Range Facil ity Vital Signs Date Time Vital Sign Value Performing Clinician Chad owen 07-25-2022 11:44-0400 Body height 170.2 cm Lashonda Galeas APRN.DOG LICENSE OFFICER SUPERVISOR Work Phone: [facility] 07-25-2022 11:44-0400 Body weight 65.77 kg Lashonda Galeas APRN.CNP Work Phone: [facility] 07-25-2022 11:44-0400 Diastolic blood pressure 71 mm[Hg] Lashonda Galeas APRN.KYLE Work Phone: [facility] 07-25-2022 11:44-0400 Heart rate 71 /min Lashonda Galeas APRN.KYLE Work Phone: [facility] 07-25-2022 11:44-0400 Respiratory rate 16 /min Lashonda Galeas APRN.CNP Work Phone: [facility] 07-25-2022 11:44-0400 SaO2% (BldA) [Mass fraction] 98 % Lashonda Galeas APRN.CNP Work Phone: [facility] 07-25-2022 11:44-0400 Systolic blood pressure 117 mm[Hg] Lashonda Galeas APRN.KYLE Work Phone: [facility] Encounters Encounter Date Encounter Type Care Provider Facility Start: 07-28-2022 End: 07-29-2022 ambulatory [facility] Facility:[facility] Start: 07-25-2022 End: 07-25-2022 ambulatory [facility] Facility:[facility] Start: 07-25-2022 End: 07-25-2022 Patient encounter procedure Lashonda Galeas APRN.KYLE Work Phone: [facility] Plan of Treatment Date Care Activity Detail Author Start: 11-14-2022 Influenza vaccination INFLUENZA (Sea son Ended) [facility] Start: 03-16-2022 DEPRESSION ASSESSMENT DEPRESSION ASS ESSMENT [facility] Start: 09-24-2015 PAP TESTING PAP TESTING [facility] Start: 2013 Urine microalbumin profile DTAP,TDAP ,TD (1 - Tdap) [facility] Start: 2012 HEPATITIS C SCREENING HEPATITIS C SC LENORA [facility] Start: 2012 HIV SCREENING HIV SCREENING [facility] Start: 03-26-1995 COVID-19 VACCINE (#1) COVID-19 VACCI NE (#1) [facility] Start: 1994 HEPATITIS B (1 of 3 - 3-dose series) HEPATITIS B (1 of 3 - 3-dose series) [facility] Payers Date Payer Category Payer Unknown JEFFREY AAYUSH LORA PPO [id number] 2022-Present [phone] [address] [place] [address] PPO [id number] 2022 Unknown [id number] Social History Date Type Detail Facility Start: 07-25-2022 Tobacco smoking stat us NHIS Never smoked tobacco [facility] Start: 07-25-2022 Tobacco use and exposure Smoke less tobacco non-user [facility] Start: 1995 Sex Assigned At Not on file [facility] Progress note 07-28-2022 Note Date & Type Note Facility 07-28-2022 Note HNO ID: [id number] Author: Rosanna Santos APRN.DOG LICENSE OFFICER SUPERVISOR Service: ? Author Type: Nurse Practitioner Type: Progress Notes Filed: 07/28/2022 10:40 AM Note Text: This note was created using FLIP4NEWriter. Subjective Roney Torres is a 26 year old female. Patient here for concerns over new onset easy bruising. Went to [facility] care on 07/25 and was advised to see primary care for further evaluation. Patient has no PCP, recently moved from [place] 2 years ago. Had her first child in January 2022 via at [facility]. History of anemia during , needed iron transfusions during . Has noticed random bruising to legs and right arm in the last week with no known injury. Reviewed PMFSH. Denies any other abnormal bleeding The history is provided by the patient. Review of Systems Constitutional: Negative for fatigue. Eyes: Negative for visual disturbance. Respiratory: Positive for shortness of breath. Negative for cough and wheezing. Cardiovascular: Positive for chest pain. Negative for palpitations and leg swelling. Gastrointestinal: Negative for blood in stool. Genitourinary: Negative for menstrual problem. Neurological: Negative for dizziness and headaches. Psychiatric/Behavioral: Negative for sleep disturbance. PAST MEDICAL HISTORY Diagnosis Date Anemia during PAST SURGICAL HISTORY Procedure Laterality Date 2021 EYE SURGERY HX x2 ALLERGIES Patient has no known allergies. MEDICATIONS No prescriptions on file. FAMILY HISTORY Problem Relation Age of Onset No Known Problems Mother Heart disease Father No Known Problems Sister No Known Problems Brother Breast Cancer Maternal Grandmother early 60's Prostate Cancer Maternal Grandfather age 76 Heart disease Paternal Grandfather Social History Tobacco Use Smoking status: Never Smokeless tobacco: Never Objective BP 110/74 Pulse 99 Temp 37.2 ?C (99 ?F) (Temporal) Ht 170.2 cm (5' 7 ) Wt 66.6 kg (146 lb 12.8 oz) LMP 07/24/2022 (Exact Date) SpO2 97% BMI 22.99 kg/m? Physical Exam Vitals and nursing note reviewed. Constitutional: Appearance: She is well-developed. She is not ill-appearing. Eyes: Conjunctiva/sclera: Conjunctivae normal. Cardiovascular: Rate and Rhythm: Normal rate and regular rhythm. Heart sounds: Normal heart sounds. Pulmonary: Effort: Pulmonary effort is normal. Breath sounds: Normal breath sounds. Abdominal: Tenderness: There is no abdominal tenderness. Musculoskeletal: Right lower leg: No edema. Left lower leg: No edema. Skin: General: Skin is warm and dry. Comments: A few scattered small round bruises to upper inner right arm, bilateral upper and lower legs Neurological: Mental Status: She is alert and oriented to person, place, and time. Gait: Gait normal. Psychiatric: Mood and Affect: Mood normal. Assessment and Plan 1. Abnormal bruising Patient will go to the lab today to get her labs completed. If symptoms persist and labs are normal, schedule follow-up with Dr. Ignacio. Also recommend scheduling 40 minute physical with him to establish care. - ACTIVATED PTT; Future - PROTHROMBIN TIME/PT; Future - CBC + DIFF; Future 2. History of anemia - FERRITIN BLD; Future - IRON + TIBC; Future Rosanna Santos APRN.DOG LICENSE OFFICER SUPERVISOR [facility] Progress note 07-25-2022 Note Date & Type Note Facility 07-25-2022 Note HNO ID: [id number] Author: Lashonda Galeas APRN.DOG LICENSE OFFICER SUPERVISOR Service: ? Author Type: Nurse Practitioner Type: Progress Notes Filed: 07/25/2022 12:10 PM Note Text: This note was created using NoteWriter. Subjective Roney Torres is a 26 year old female. HPI by patient: Roney Torres is a 26 year old presenting to the office with the complaint of easy bruising . CC: (6 month post . States she was anemic throughout her and received 2 iron infusions after . States she noticed a few days ago some random bruising. Reached out to OB and they informed her to go to urgent care to be evaluated. Does not have PCP) Started a couple days ago. Associated symptoms include bruising the right arm and leg. Doesn't recall bumping into anything. Denies fever, unexplained weight loss, dizziness, and feeling lightheaded. OTC not used. No antibiotic use in the last 60 days. ALLERGIES No Known Allergies No family history on file. Active Ambulatory Problems No Active Ambulatory Problems Resolved Ambulatory Problems No Resolved Ambulatory Problems No Additional Past Medical History Review of Systems Constitutional: Negative. HENT: Negative. Eyes: Negative. Respiratory: Negative. Cardiovascular: Negative. Gastrointestinal: Negative. Endocrine: Negative. Genitourinary: Negative. Musculoskeletal: Negative. Skin: Negative. Neurological: Negative. Hematological: Bruises/bleeds easily. Objective BP 117/71 Pulse 71 Resp 16 Ht 170.2 cm (5' 7 ) Wt 65.8 kg (145 lb) SpO2 98% BMI 22.71 kg/m? Physical Exam Vitals reviewed. Constitutional: General: She is not in acute distress. Appearance: She is not ill-appearing, toxic-appearing or diaphoretic. Cardiovascular: Rate and Rhythm: Normal rate and regular rhythm. Pulmonary: Effort: Pulmonary effort is normal. Breath sounds: Normal breath sounds. Skin: Findings: Bruising present. Comments: Faint bruising noted on the anterior right upper arm and anterior thigh. French to green. Neurological: Mental Status: She is alert. Psychiatric: Behavior: Behavior is cooperative. Assessment and Plan (T14.8XXA) Bruising (primary encounter diagnosis) Plan: ESTABLISH WITH PRIMARY CARE - NEW PATIENT -May use over the counter cream, like Arnica cream, to help bruising fade. -OTC tylenol as directed on the bottle. -Unable to fully workup bruising in Express Care. Will refer to primary care for appropriate evaluation. -Signs that warrant an ER evaluation: Sudden change/worsening in condition, lethargy, signs of dehydration, fever greater than 102 F that is not responding to Tylenol or ibuprofen (Motrin, Advil), drooling, difficulty swallowing, difficulty breathing, shortness of breath, chest pain, evidence of airway compromise (tripod position, neck extension, retractions), seizures, changes in mental status, or other concerns. The patient will pursue further outpatient evaluation with the primary care physician or another Urgent Care/Express Care as outlined in the after visit summary. The patient is agreeable to this plan of care and follow-up instructions have been explained in detail. The patient has received these instructions in written format and have expressed an understanding of the after visit summary. Medical Decision Making: Level: 3 - Low I spent a total of 20 minutes on the date of the service which included preparing to see the patient, [id number] patient care, completing clinical documentation, obtaining and/or reviewing separately obtained history, performing a medically appropriate examination, counseling and educating the patient/family/caregiver, and ordering medications, tests, or procedures. [facility] Instructions 07-25-2022 Patient Instructions Note Date & Type Note Facility 07-25-2022 Instructions Lashonda Galeas APRN.KYLE - 07/25/2022 11:47 AM EDT (T14.8XXA) Bruising (primary encounter diagnosis) Plan: ESTABLISH WITH PRIMARY CARE - NEW PATIENT -May use over the counter cream, like Arnica cream, to help bruising fade. -OTC tylenol as directed on the bottle. -Unable to fully workup bruising in [facility]. Will refer to primary care for appropriate evaluation. -Signs that warrant an ER evaluation: Sudden change/worsening in condition, lethargy, signs of dehydration, fever greater than 102 F that is not responding to Tylenol or ibuprofen (Motrin, Advil), drooling, difficulty swallowing, difficulty breathing, shortness of breath, chest pain, evidence of airway compromise (tripod position, neck extension, retractions), seizures, changes in mental status, or other concerns. documented in this encounter [facility] History of Present illness Narrative 07-25-2022 Lashonda Galeas APRN.KYLE - 07/25/2022 11:41 AM EDT Note Date & Type Note Facility 07-25-2022 History of Presen t illness Narrative Images from the original note were not included. This note was created using FLIP4NEWriter. Subjective Roney Torres is a 26 year old female. HPI by patient: Roney Torres is a 26 year old presenting to the office with the complaint of easy bruising . CC: (6 month post . States she was anemic throughout her and received 2 iron infusions after . States she noticed a few days ago some random bruising. Reached out to OB and they informed her to go to urgent care to be evaluated. Does not have PCP) Started a couple days ago. Associated symptoms include bruising the right arm and leg. Doesn't recall bumping into anything. Denies fever, unexplained weight loss, dizziness, and feeling lightheaded. OTC not used. No antibiotic use in the last 60 days. ALLERGIES No Known Allergies No family history on file. Active Ambulatory Problems No Active Ambulatory Problems Resolved Ambulatory Problems No Resolved Ambulatory Problems No Additional Past Medical History Review of Systems Constitutional: Negative. HENT: Negative. Eyes: Negative. Respiratory: Negative. Cardiovascular: Negative. Gastrointestinal: Negative. Endocrine: Negative. Genitourinary: Negative. Musculoskeletal: Negative. Skin: Negative. Neurological: Negative. Hematological: Bruises/bleeds easily. Objective BP 117/71 Pulse 71 Resp 16 Ht 170.2 cm (5' 7 ) Wt 65.8 kg (145 lb) SpO2 98% BMI 22.71 kg/m Physical Exam Vitals reviewed. Constitutional: General: She is not in acute distress. Appearance: She is not ill-appearing, toxic-appearing or diaphoretic. Cardiovascular: Rate and Rhythm: Normal rate and regular rhythm. Pulmonary: Effort: Pulmonary effort is normal. Breath sounds: Normal breath sounds. Skin: Findings: Bruising present. Comments: Faint bruising noted on the anterior right upper arm and anterior thigh. French to green. Neurological: Mental Status: She is alert. Psychiatric: Behavior: Behavior is cooperative. Assessment and Plan (T14.8XXA) Bruising (primary encounter diagnosis) Plan: ESTABLISH WITH PRIMARY CARE - NEW PATIENT -May use over the counter cream, like Arnica cream, to help bruising fade. -OTC tylenol as directed on the bottle. -Unable to fully workup bruising in [facility]. Will refer to primary care for appropriate evaluation. -Signs that warrant an ER evaluation: Sudden change/worsening in condition, lethargy, signs of dehydration, fever greater than 102 F that is not responding to Tylenol or ibuprofen (Motrin, Advil), drooling, difficulty swallowing, difficulty breathing, shortness of breath, chest pain, evidence of airway compromise (tripod position, neck extension, retractions), seizures, changes in mental status, or other concerns. The patient will pursue further outpatient evaluation with the primary care physician or another Urgent Care/Express Care as outlined in the after visit summary. The patient is agreeable to this plan of care and follow-up instructions have been explained in detail. The patient has received these instructions in written format and have expressed an understanding of the after visit summary. Medical Decision Making: Level: 3 - Low I spent a total of 20 minutes on the date of the service which included preparing to see the patient, [id number] patient care, completing clinical documentation, obtaining and/or reviewing separately obtained history, performing a medically appropriate examination, counseling and educating the patient/family/caregiver, and ordering medications, tests, or procedures. documented in this encounter [facility] Evaluation note Note Date & Type Note Facility documented in this encounter [facility] Reason for Referral Specialty Diagnoses / Procedures Referred By Zulma randle Referred To Contact Diagnoses Bruising Procedures ESTABLISH WITH PRIMARY CARE NEW PATIENT OFFICE/OUTPATIENT [facility] 60-74 MINUTES Lashonda Galeas APRN.DOG LICENSE OFFICER SUPERVISOR [address] [place] [address] Referral ID Status Reason Start Date Expiration Date Visits Requested Visits Authorized [id number] Authorized PCP Requested Referral 07/25/2022 07/25/2023 1 1 Summary Purpose Family History No Family History Records FoundNo Family History Records Found Advance Directives No Advanced Directives Records FoundNo Advanced Directives Records Found Additional Source Comments Source Comments (unrecognize d section and content) In the event this informatio n is protected by the Federal Confidentiality of Alcohol and Drug Abuse Patient Records regulations: The Federal rules restrict any use of the information to criminally investigate or prosecute any alcohol or drug abuse patient.[facility] Reason for Visit (unrecogniz ed section and content) INFORMATION SOURCE (unrecogn ized section and content) DATE CREATED AUTHOR AUTHOR'S ORGANIZ ATION 07/29/2022 [facility] FOR RECORDS PERTAINING TO PATIENTS WHO ARE OR HAVE BEEN ENROLLED IN A CHEMICAL DEPENDENCY/SUBSTANCEABUSE PROGRAM, SOME INFORMATION MAY BE OMITTED. This clinical summary was aggregated from multiple sources. Caution should be exercised in using it in the provision of clinical care. This summary normalizes information from multiple sources, and as a consequence, information in this document may materially change the coding, format and clinical context of patient data. In addition, data may be omitted in some cases. CLINICAL DECISIONS SHOULD BE BASED ON THE PRIMARY CLINICAL RECORDS. [facility] [email or web address] [facility]. provides no warranty or guarantee of the accuracy or completeness of information in this document.
[2023-04-05 07:07] LABS: Chlamydia By Nucleic Acid AMP Negative (Negative); Gonococcus By Nucleic Acid AMP Negative (Negative)
== END | disposition home or self-care (01) ==
LOC: LABSPEC 10:05
PROVIDERS: Referring Provider Advanced Practice Midwife; Visit Provider Advanced Practice Midwife
DX: Z34.90 Encounter for supervision of normal pregnancy, unspecified, unspecified trimester (principal)
CPT/HCPCS: 87086; 87491; 87591

== ENCOUNTER → 2023-05-13 | Outpatient (CLI) | payer BC, SELFPAY ==
[2023-05-13 10:50] LABS: Absolute Neutrophil Count 5.5 X10^3/uL (2.0-7.7); Basophil# 0.04 X10^3/uL; Basophil% 0.5 % (0-1); Eosinophil# 0.17 X10^3/uL; Hemoglobin 11.5 g/dL (12.0-15.0); Lymphocyte % 25.2 % (19-41); Mean Corp Hgb Conc 33.8 g/dL (32-36); Mean Corpuscular Hgb 29.5 pg (27.0-32.0); Mean Corpuscular Volume 87.2 fL (81-99); Mean Platelet Vol. 9.6 fl (6.2-12.0); Monocyte# 0.44 X10^3/uL; Monocyte% 5.3 % (0-10); NRBC Flagged by Analyzer 0 % (0-5); Neutrophil # 5.52 X10^3/uL (2.7-7.7); Neutrophil % 66.2 % (47-70); Platelet Count 245 K/mm3 (150-450); RBC Distribution Width CV 12.8 % (11.6-14.6); RBC Distribution Width SD 40.1 fl (35.1-43.9); White Blood Count 8.3 K/mm3 (4.4-11.0)
[2023-05-13 12:22] LABS: HIV - WCH Non-Reactive (Nonreactive); Hepatitis B Surface Antigen Non-Reactive (Nonreactive); Hepatitis C Antibody Non-Reactive (Nonreactive); Rubella IgG Reactive (Nonreactive); Syphilis Antibodies Non-reactive
--- OUTSIDE RECORDS SUMMARY | 2023-05-13 20:19 | XMS RPT_ITS | CCD ---
Author Name Unknown Address [address] [place] [address] Organization [facility] Care Team Providers Care Microbiology Technician Name Role Phone Unavailable Primary Care Provider [...] 11:44-0400 Body height 170.2 cm Lashonda Galeas APRN.CATTLE FEEDER Work Phone: [facility] 07-25-2022 11:44-0400 Body weight 65.77 kg Lashonda Galeas APRN.KYLE Work Phone: [facility] 07-25-2022 11:44-0400 Diastolic blood pressure 71 mm[Hg] Lashonda Galeas APRN.CATTLE FEEDER Work Phone: [facility] 07-25-2022 11:44-0400 Heart rate 71 /min Lashonda Galeas APRN.KYLE Work Phone: [facility] 07-25-2022 11:44-0400 Respiratory rate 16 /min Lashonda Galeas APRN.CNP Work Phone: [facility] 07-25-2022 11:44-0400 SaO2% (BldA) [Mass fraction] 98 % Lashonda Galeas APRN.CNP Work Phone: [facility] 07-25-2022 11:44-0400 Systolic blood pressure 117 mm[Hg] Lashonda Galeas APRN.KYLE Work Phone: [facility] Encounters Encounter Date Encounter Type Care Provider Facility Start: 07-28-2022 End: 07-29-2022 ambulatory [facility] Facility:[facility] Start: 07-25-2022 End: 07-25-2022 ambulatory [facility] Facility:[facility] Start: 07-25-2022 End: 07-25-2022 Patient encounter procedure Lashonda Galeas APRN.KYLE Work Phone: [facility] Plan of Treatment Date Care Activity Detail Author Start: 11-14-2022 Influenza vaccination INFLUENZA (Sea son Ended) [facility] Start: 03-16-2022 DEPRESSION ASSESSMENT DEPRESSION ASS ESSMENT [facility] Start: 09-24-2015 PAP TESTING PAP TESTING [facility] Start: 2013 Urine microalbumin profile DTAP,TDAP ,TD (1 - Tdap) [facility] Start: 2012 HEPATITIS C SCREENING HEPATITIS C SC LENORA [facility] Start: 2012 HIV SCREENING HIV SCREENING [facility] Start: 03-26-1995 COVID-19 VACCINE (#1) COVID-19 VACCI NE (#1) [facility] Start: 1994 HEPATITIS B (1 of 3 - 3-dose series) HEPATITIS B (1 of 3 - 3-dose series) [facility] Clini c Payers Date Payer Category Payer Unknown JEFFREY AAYUSH LORA PPO [id number] 2022-Present [phone] [address] [place] [address] PPO [id number] 2022 Unknown [id number] Social History Date Type Detail Facility Start: 07-25-2022 Tobacco smoking stat us NHIS Never smoked tobacco [facility] Start: 07-25-2022 Tobacco use and exposure Smoke less tobacco non-user [facility] Start: 1994 Sex Assigned At Not on file [facility] Progress note 07-28-2022 Note Date & Type Note Facility 07-28-2022 Note HNO ID: [id number] Author: Rosanna Santos APRN.CATTLE FEEDER Service: ? Author Type: Nurse Practitioner Type: Progress Notes Filed: 07/28/2022 10:40 AM Note Text: This note was created using Hospicelinkriter. Subjective Roney Torres is a 26 year old female. Patient here for concerns over new onset easy bruising. Went to [facility] care on 07/25 and was advised to see primary care for further evaluation. Patient has no PCP, recently moved from [place] 2 years ago. Had her first child in January 2022 via at [facility]. History of anemia during , needed [...] - IRON + TIBC; Future Rosanna Santos APRN.CATTLE FEEDER [facility] Progress note 07-25-2022 Note Date & Type Note Facility 07-25-2022 Note HNO ID: [id number] Author: Lashonda Galeas APRN.CATTLE FEEDER Service: ? Author Type: Nurse Practitioner Type: [...] which included preparing to see the patient, [id number] patient care, completing clinical documentation, obtaining and/or reviewing separately obtained history, performing a medically appropriate examination, counseling and educating the patient/family/caregiver, and ordering medications, tests, or procedures. [facility] Instructions 07-25-2022 Patient Instructions Note Date & [...] or other concerns. documented in this encounter [facility] History of Present illness Narrative 07-25-2022 Lashonda Galeas APRN.KYLE - 07/25/2022 11:41 AM EDT Note Date & Type Note Facility 07-25-2022 History of Presen t illness Narrative Images from the original note were not included. This note was created using Hospicelinkriter. Subjective Roney Torres is a 26 year [...] which included preparing to see the patient, [id number] patient care, completing clinical documentation, obtaining and/or reviewing separately obtained history, performing a medically appropriate examination, counseling and educating the patient/family/caregiver, and ordering medications, tests, or procedures. documented in this encounter [facility] Evaluation note Note Date & Type Note Facility documented in this encounter [facility] Reason for Referral Specialty Diagnoses / Procedures Referred By Zulma randle Referred To Contact Diagnoses Bruising Procedures ESTABLISH WITH PRIMARY CARE NEW PATIENT OFFICE/OUTPATIENT [facility] 60-74 MINUTES Lashonda Galeas APRN.CATTLE FEEDER [address] [place] [address] Referral ID Status Reason Start Date Expiration Date Visits Requested Visits Authorized [id number] Authorized PCP Requested Referral 07/25/2022 07/25/2023 1 [...] or prosecute any alcohol or drug abuse patient.[facility] Reason for Visit (unrecogniz ed section and content) INFORMATION SOURCE (unrecogn ized section and content) DATE CREATED AUTHOR AUTHOR'S ORGANIZ ATION 07/29/2022 [facility] FOR RECORDS PERTAINING TO PATIENTS WHO [...] BE BASED ON THE PRIMARY CLINICAL RECORDS. [facility]. provides no warranty or guarantee of the accuracy or completeness of information in this document.
== END | disposition home or self-care (01) ==
LOC: PAVLAB 10:33
PROVIDERS: Referring Provider Advanced Practice Midwife; Visit Provider Advanced Practice Midwife
DX: Z34.90 Encounter for supervision of normal pregnancy, unspecified, unspecified trimester (principal)
CPT/HCPCS: 36415; 85025; 86703; 86762; 86780; 86803; 86850; 86900; 86901; 87340

== ENCOUNTER → 2023-07-22 | Outpatient (CLI) | payer BC, SELFPAY ==
[2023-07-22 14:22] LABS: Absolute Lymphocyte Count 2.18 X10^3/uL (0.83-4.51); Absolute Neutrophil Count 6.9 X10^3/uL (2.0-7.7); Basophil# 0.04 X10^3/uL; Basophil% 0.4 % (0-1); Eosinophil# 0.24 X10^3/uL; Eosinophils% 2.4 % (0-5); Hematocrit 32.3 % (37-47); Hemoglobin 10.8 g/dL (12.0-15.0); Lymphocyte # 2.18 X10^3/ul (0.83-4.51); Lymphocyte % 21.8 % (19-41); Mean Corp Hgb Conc 33.4 g/dL (32-36); Mean Corpuscular Hgb 30.2 pg (27.0-32.0); Mean Corpuscular Volume 90.2 fL (81-99); Monocyte# 0.49 X10^3/uL; Monocyte% 4.9 % (0-10); NRBC Flagged by Analyzer 0 % (0-5); Neutrophil # 6.94 X10^3/uL (2.7-7.7); Neutrophil % 69.3 % (47-70); Platelet Count 256 K/mm3 (150-450); RBC Distribution Width CV 13.2 % (11.6-14.6); RBC Distribution Width SD 43.3 fl (35.1-43.9); Red Blood Count 3.58 M/mm3 (4.2-5.4)
[2023-07-22 14:37] LABS: Glucose Challenge Gest 1H 50g 154 mg/dL (70-140)
[2023-07-22 15:22] LABS: HIV - WCH Non-Reactive (Nonreactive); Syphilis Antibodies Non-reactive
== END | disposition home or self-care (01) ==
PROVIDERS: Referring Provider Nurse Practitioner Women's Health; Visit Provider Nurse Practitioner Women's Health
DX: Z34.90 Encounter for supervision of normal pregnancy, unspecified, unspecified trimester (principal)
CPT/HCPCS: 36415; 82950; 85025; 86703; 86780

== ENCOUNTER → 2023-07-28 | Outpatient (CLI) | payer BC, SELFPAY ==
[2023-07-28 07:16] LABS: Absolute Lymphocyte Count 2.22 X10^3/uL (0.83-4.51); Absolute Neutrophil Count 5.2 X10^3/uL (2.0-7.7); Basophil# 0.04 X10^3/uL; Basophil% 0.5 % (0-1); Eosinophil# 0.27 X10^3/uL; Eosinophils% 3.3 % (0-5); Hematocrit 30.9 % (37-47); Hemoglobin 9.9 g/dL (12.0-15.0); Lymphocyte # 2.22 X10^3/ul (0.83-4.51); Mean Corpuscular Hgb 29.6 pg (27.0-32.0); Mean Corpuscular Volume 92.2 fL (81-99); Mean Platelet Vol. 10.2 fl (6.2-12.0); Monocyte# 0.44 X10^3/uL; Monocyte% 5.4 % (0-10); NRBC Flagged by Analyzer 0 % (0-5); Neutrophil # 5.18 X10^3/uL (2.7-7.7); Neutrophil % 62.9 % (47-70); Platelet Count 234 K/mm3 (150-450); RBC Distribution Width CV 13.2 % (11.6-14.6); RBC Distribution Width SD 44.2 fl (35.1-43.9); Red Blood Count 3.35 M/mm3 (4.2-5.4); White Blood Count 8.2 K/mm3 (4.4-11.0)
[2023-07-28 07:49] LABS: Glucose GTT-Gestation. Fasting 98 mg/dL (<105)
[2023-07-28 09:12] LABS: Glucose GTT-Gestational 1 Hr 171 mg/dL (<190)
[2023-07-28 09:50] LABS: Glucose GTT-Gestational 2 Hr 129 mg/dL (<165)
[2023-07-28 11:36] LABS: Glucose GTT-Gestational 3 Hr 100 L (<145)
== END | disposition home or self-care (01) ==
LOC: LAB 06:54
PROVIDERS: Referring Provider Nurse Practitioner Women's Health; Visit Provider Nurse Practitioner Women's Health
DX: O99.019 Anemia complicating pregnancy, unspecified trimester (principal); Z13.1 Encounter for screening for diabetes mellitus; Z3A.00 Weeks of gestation of pregnancy not specified
CPT/HCPCS: 36415; 82951; 82952; 85025

== ENCOUNTER → 2023-08-19 | Outpatient (CLI) | payer BC, SELFPAY ==
[2023-08-19 08:41] LABS: Ferritin 12 ng/mL (8-252); Iron 132 ug/dL (50-170); Iron Binding Capacity,Total 505 ug/dL (250-450)
== END | disposition home or self-care (01) ==
PROVIDERS: Referring Provider Nurse Practitioner Women's Health; Visit Provider Nurse Practitioner Women's Health
DX: O99.019 Anemia complicating pregnancy, unspecified trimester (principal); Z3A.00 Weeks of gestation of pregnancy not specified
CPT/HCPCS: 36415; 82728; 83540; 83550

== ENCOUNTER → 2023-09-14 | Outpatient (CLI) | payer BC, SELFPAY ==
[2023-09-14 11:01] LABS: Absolute Lymphocyte Count 1.73 X10^3/uL (0.83-4.51); Absolute Neutrophil Count 4.6 X10^3/uL (2.0-7.7); Basophil# 0.03 X10^3/uL; Basophil% 0.4 % (0-1); Eosinophil# 0.14 X10^3/uL; Hemoglobin 10.6 g/dL (12.0-15.0); Lymphocyte # 1.73 X10^3/ul (0.83-4.51); Lymphocyte % 24.5 % (19-41); Mean Corp Hgb Conc 33.1 g/dL (32-36); Mean Corpuscular Hgb 29.5 pg (27.0-32.0); Mean Corpuscular Volume 89.1 fL (81-99); Mean Platelet Vol. 10.1 fl (6.2-12.0); Monocyte# 0.42 X10^3/uL; Monocyte% 5.9 % (0-10); NRBC Flagged by Analyzer 0 % (0-5); Neutrophil # 4.62 X10^3/uL (2.7-7.7); Neutrophil % 65.5 % (47-70); Platelet Count 214 K/mm3 (150-450); RBC Distribution Width CV 13.2 % (11.6-14.6); RBC Distribution Width SD 43.1 fl (35.1-43.9); Red Blood Count 3.59 M/mm3 (4.2-5.4); White Blood Count 7.1 K/mm3 (4.4-11.0)
== END | disposition home or self-care (01) ==
LOC: PAVLAB 10:45
PROVIDERS: Referring Provider Obstetrics & Gynecology; Visit Provider Obstetrics & Gynecology
DX: O99.013 Anemia complicating pregnancy, third trimester (principal); Z3A.00 Weeks of gestation of pregnancy not specified
CPT/HCPCS: 36415; 85025

== ENCOUNTER → 2023-10-02 | Outpatient (CLI) | payer BC, SELFPAY | END | disposition home or self-care (01) | LOC: LABSPEC 16:55 | PROVIDERS: Referring Provider Registered Nurse; Visit Provider Registered Nurse | DX: O09.93 Supervision of high risk pregnancy, unspecified, third trimester (principal); Z3A.00 Weeks of gestation of pregnancy not specified | CPT/HCPCS: 87077; 87081; 87186 ==

== ENCOUNTER → 2023-10-14 | Outpatient (CLI) | payer BC, SELFPAY ==
--- NOTE | 2023-10-14 08:50 | US_ITS ---
STUDY: SECOND AND THIRD TRIMESTER OBSTETRICAL ULTRASOUND - LIMITED REASON FOR EXAM: Female, 28 years old history of oligohydramnios LMP: 01/22/2023 PRIOR ULTRASOUND: TECHNIQUE: Transabdominal TECHNICAL QUALITY: Adequate. FINDINGS: There is a single intrauterine fetus. The fetus is in a cephalic presentation. There is demonstrated cardiac activity with a heart rate of 129 bpm. There is a normal amniotic fluid volume. The largest amniotic fluid pocket measures 5.2 cm. The amniotic fluid index (NGOZI) is 9.4 cm. The placenta is posterior in location and is not low lying. There are Grade 2 placental changes. The cervix measures cm in length. BIOMETRY: BPD: 8.9 cm: 36 weeks, 1 days HC: 33.0 cm: 37 weeks, 4 days AC: 32.4 cm: 36 weeks, 2 days FL: 7.0 cm: 36 weeks, 0 days Age by LMP: 37 weeks, 6 days. ADRIÁN by LMP: 10/29/2023. age by prior US: weeks, days. ADRIÁN by prior US: . age by current US: 36 weeks, 4 days. ADRIÁN by current US: 11/07/2023. Estimated weight: 2909 grams, +/- 436 grams, 24 percentile. Gender: US/OB Limited With Biometrics IMPRESSION: Living intrauterine of 36 weeks 4 days as described above. Electronically Signed: Ramon Gallego MD at 13:17 EDT ,
== END | disposition home or self-care (01) ==
PROVIDERS: Referring Provider Obstetrics & Gynecology; Visit Provider Obstetrics & Gynecology
DX: O09.93 Supervision of high risk pregnancy, unspecified, third trimester (principal); Z3A.00 Weeks of gestation of pregnancy not specified
CPT/HCPCS: 76816

== ENCOUNTER 2023-10-22 05:23 | Inpatient (IN) | payer BC, SELFPAY ==
[2023-10-22] VITALS (20 sets, daily range): BP systolic 104–123; BP diastolic 63–94; PULSE 65–110; RESP 14–18; TEMP 36.3–36.8; O2SAT 96–100; BMI 26.9
[2023-10-22] MEDS: Lactated Ringers 1,000 ML 999 ML IV (05:40)
[2023-10-22 06:00] LABS: Absolute Lymphocyte Count 1.84 X10^3/uL (0.83-4.51); Absolute Neutrophil Count 5.2 X10^3/uL (2.0-7.7); Basophil# 0.04 X10^3/uL; Basophil% 0.5 % (0-1); Eosinophil# 0.13 X10^3/uL; Eosinophils% 1.7 % (0-5); Hematocrit 32.7 % (37-47); Hemoglobin 10.6 g/dL (12.0-15.0); Lymphocyte # 1.84 X10^3/ul (0.83-4.51); Lymphocyte % 23.7 % (19-41); Mean Corp Hgb Conc 32.4 g/dL (32-36); Mean Corpuscular Hgb 28.6 pg (27.0-32.0); Mean Corpuscular Volume 88.4 fL (81-99); Mean Platelet Vol. 10.9 fl (6.2-12.0); Monocyte# 0.46 X10^3/uL; Monocyte% 5.9 % (0-10); NRBC Flagged by Analyzer 0 % (0-5); Neutrophil # 5.21 X10^3/uL (2.7-7.7); Platelet Count 210 K/mm3 (150-450); RBC Distribution Width CV 13.9 % (11.6-14.6); RBC Distribution Width SD 44.7 fl (35.1-43.9); White Blood Count 7.8 K/mm3 (4.4-11.0)
[2023-10-22] MEDS: Acetaminophen 500 MG Tablet 1000 MG PO ×4 (06:09→23:50)
[2023-10-22] MEDS: Lactated Ringers 1,000 ML 150 ML IV (06:35)
[2023-10-22] MEDS: Sodium Citrate/Citric Acid 30 ML UDC PO (07:15)
--- NOTE | 2023-10-22 07:15 | HP.PCM.OB_ITS ---
HPI - General General Date of Admission: 10/22/23 HPI Narrative RONEY TORRES, is a 28 y/o @ 39 weeks 0 days who presents to L&D for a scheduled repeat section. Maternal Data Information ADRIÁN Calculator Estimated Delivery Date Method Current WG Current Estimate 10/29/23 LMP (Certain) 39w 0d PFSH PFSH Medical History (Updated 10/22/23 @ 05:53 by Corine Bernard) History of blood transfusion hemorrhage Seasonal allergies Home Medications ?Medication ?Instructions ?Recorded ?Last Taken ?Type multivitamin no.47-iron fum 27 1 cap PO DAILY 03/24/23 10/20/23 20:00 History mg-folate no.1 1 mg-dha 300 mg 1 cap capsule (PNV-DHA) ferrous gluconate 324 mg (38 mg 324 mg PO DAILY Anemia #90 tabs 07/22/23 10/20/23 20:00 Rx iron) tablet 324 mg Allergy/AdvReac Type Severity Reaction Status Date / Time No Known Allergies Allergy Verified 10/22/23 05:53 Family History Grandmother Breast cancer, Onset Age: 69 paternal Father Heart disease Grandfather Heart disease Prostate cancer Grandmother Breast cancer, Onset Age: 50 Maternal Surgical History (Updated 10/22/23 @ 05:53 by Corine Bernard) [place] teeth removed Status post section Delivery by section History of eye surgery Social History adopted: No household members: spouse and children number of children: 1 current occupational status: employed current occupation: self - photography current occupational exposures/hazards: No pets and animals: Yes (avoid litter box) pets and animals: cat(s) history of recent travel: [place] ([place]) out of state: Yes out of country: No sexually active: Yes Smoking Status: Never smoker alcohol intake: current alcohol intake frequency: a few times a month details: not while substance use type: does not use well-balanced diet: daily or most days caffeine: No eating out: 1-3 times/week during the past year weight has: remained stable what type of physical activity do you participate in: walking frequency: 1-2 times per week duration: 30-45 minutes/day lizeth/yarsanism: Zoroastrian seatbelt use: always do you feel safe at home: Yes additional social history: - Felix Torres History 2 Elective abortions Hx Para 1 Spontaneous abortions Hx # Term Pregnancies Ectopic pregnancies Hx # Pregnancies Multiple births # of living children 1 Past Pregnancies Del. Date Name GA/Weeks Outcome Route Bth Weight Gen Labor Lgth Anesthesia [facility] Provider FOB 01/23/22 Carter 41 live - full term 8lbs Male ep idural [facility] Eliana Sorenson Delivery Date: 01/23/22 Last Updated by: Julieta Bonilla primary section for failure to dilate and intolerance to labor. Visit Details Expected Delivery Route/Plan desires RLTCS Plans Covid status: [] Flu vaccine: [] Tdap vaccine: declines Rhogam: [] LARC form signed: [] Problem list reviewed and updated with the most current plan of care details and appropriate orders placed. Relevant counseling for the gestational age provided. Continue routine care and follow up unless otherwise noted in visit notes/problem list details OB Flowsheet Initial Weight: Not Recorded Date -?-?-?-?-?-?-?-?-?-?-?-?- EGA Weight BP Urine Prot -?-?-?-?-?-?-?-?-?-?-?-?- Glucose FHR FuHt Pres Dilation -?-?-?-?-?-?-?-?-?-?-?-?- Effaced St Visit Note 04/02/23 -?-?-?-?-?-?-?-?-?-?-?-?- 10w 0d 150 lb 8 oz 122/85 -?-?-?-?-?-?-?-?-?-?-?-?- 171 -?-?-?-?-?-?-?-?-?-?-?-?- KW-CRL cons with dates. declines NIPT. plans LTRCS with JV at 39 weeks. 05/13/23 -?-?-?-?-?-?-?-?-?-?-?-?- 15w 6d 154 lb 4 oz 126/79 Nega tive -?-?-?-?-?-?-?-?-?-?-?-?- Negative 152 -?-?-?-?-?-?-?-?-?-?-?-?- JV-no lof, vagin al bleeding, or cramping. no complaints. having a girl! has boy at home 06/23/23 -?-?-?-?-?-?-?-?-?-?-?-?- 21w 5d 157 lb 4 oz 120/68 Nega tive -?-?-?-?-?-?-?-?-?-?-?-?- Negative 138 -?-?-?-?-?-?-?--?-?-?-?-?- MH-No VB or cram ping. Emiliano FM. Denies concerns 07/22/23 -?-?-?-?-?-?-?-?-?-?-?-?- 25w 6d 162 lb 8 oz 130/81 Nega tive -?-?-?-?-?-?-?-?-?-?-?-?- Negative 135 25 -?-?-?-?-?-?-?-?-?-?-?-?- JV- initial scan was wrong and it is a boy! (has boy at home) JV- initial scan was wrong a nd it is a boy! (has boy at home) failed 1 hr gtt ordered. anemic. starting iron. 08/19/23 -?-?-?-?-?-?-?-?-?-?-?-?- 29w 6d 165 lb 123/80 Negative -?-?-?-?-?-?-?-?-?-?-?-?- Negative 141 29 -?-?-?-?-?-?-?-?-?-?-?-?- MH-No VB, LOF. G oleida FM. Denies concerns. FE studies pending. 08/31/23 -?-?-?-?-?-?-?-?-?-?-?-?- 31w 4d 167 lb 4 oz 111/69 Nega tive -?-?-?-?-?-?-?-?-?-?-?-?- Negative 137 31 -?-?-?-?-?-?-?-?-?-?-?-?- JV- pt complains of white lines under eyes. suspect mask of prengnancy from sun and recommend sun block. but needs rpt cbc to rule out worsening anemia. rpt c/s request ordered. 09/14/23 -?-?-?-?-?-?-?-?-?-?-?-?- 33w 4d 173 lb 114/78 Negative -?-?-?-?-?-?-?-?-?-?-?-?- Negative 130 34 -?-?-?-?-?-?-?-?-?-?-?-?- kw- no vb/lof/ct x. good fm. HGB 10.4 today from 9.9 10/02/23 -?-?-?-?-?-?-?-?-?-?-?-?- 36w 1d 172 lb 134/70 Negative -?-?-?-?-?-?-?-?-?-?-?-?- Negative 120 36 -?-?-?-?-?-?-?-?-?-?-?-?- LC- no vb/ctx/lo f. considering TOLAC as she desires 4 children atleast. currently has rpt cs scheduled. LC- no vb/ctx/lof. consideri ng TOLAC as she desires 4 children atleast. currently has rpt cs scheduled.gbs collected. 10/08/23 -?-?-?-?-?-?-?-?-?-?-?-?- 37w 0d 174 lb 2 oz 123/75 Nega tive -?-?-?-?-?-?-?-?-?-?-?-?- Negative 140 37 -?-?-?--?-?-?-?-?-?-?-?-?- JV- tolac questi ons answered. no lof, vaginal bleeding, or dec fm. 10/13/23 -?-?-?-?-?-?-?-?-?-?-?-?- 37w 5d 172 lb 4 oz 117/75 Nega tive -?-?-?-?-?-?-?-?-?-?-?-?- Negative 140 36 Cephalic -?-?-?-?-?-?-?-?-?-?-?-?- JV- fluid check scheduled for tomorrow. no lof, vaginal bleeding, or dec fm. 10/20/23 -?-?-?-?-?-?-?-?-?-?-?-?- 38w 5d 172 lb 116/79 Negative -?-?-?-?-?-?-?-?-?-?-?-?- Negative 125 36 Cephalic -?-?-?-?-?-?-?-?-?-?-?-?- JV- no lof, vagi nal bleeding, or dec fm. ROS Constitutional Constitutional: Denies change in weight, fatigue, fever(s), headache(s), poor appetite or weakness Eyes Eyes: Denies blurry vision, change in vision, seeing flashes or spots in vision ENT HEENT: Denies dizziness, headache(s), loss taste/smell or sore throat Cardiovascular Cardiovascular: Denies chest pain, dizziness, dyspnea, irregular heart rhythm, leg edema, palpitations, rapid heart rate or vomiting Respiratory/Chest Respiratory/Chest: Denies chest tightness, cough, dyspnea or breast pain Gastrointestinal Gastrointestinal: Denies abdominal pain, anorexia, constipation, cramping, diarrhea, hemorrhoids, vomiting or weight changes Genitourinary Genitourinary: Denies dysuria, flank pain, genital lesions, genital pain, urinary frequency or urinary urgency Musculoskeletal Musculoskeletal: Denies back pain, difficulty walking, joint pain, limited range of motion, muscle cramps or numbness Integumentary Integumentary: Denies lesions or unusual bruising Neurologic Neurologic: Denies abnormal movements, abnormal speech, dizziness, numbness, seizure-like activity or syncope Psychiatric Psychiatric: Denies anxiety, behavioral changes, change in appetite, change in libido, cognitive impairment, confusion, depression, difficulty concentrating, hallucinations or suicidal thoughts Endocrine Endocrinology: Denies excessive sweating, polydipsia or polyuria Hematologic/Lymphatic Hematologic/Lymphatic: Denies easy bleeding, easy bruising or lymphadenopathy Allergic/Immunologic Allergic/Immunologic: Denies itchy eyes, lip swelling, seasonal rhinorrhea, rhinitis, throat swelling, tongue swelling, eczemia, wheezing or asthma Vital Signs Vital Signs Vital Signs: 10/22/23 05:30 10/22/23 05:30 10/22/23 05:30 Temperature Temperature Source Temporal Pulse Rate 93 Respiratory Rate Blood Pressure 121/73 H Blood Pressure Mean BP Systolic 121 BP Diastolic 73 Blood Pressure Source Blood Pressure Position Blood Pressure Location Pulse Ox Oxygen Delivery Method 10/22/23 05:30 10/22/23 05:30 10/22/23 05:30 Temperature 97.6 F L Temperature Source Pulse Rate Respiratory Rate 16 Blood Pressure Blood Pressure Mean BP Systolic BP Diastolic Blood Pressure Source Blood Pressure Position Blood Pressure Location Pulse Ox 99 Oxygen Delivery Method 10/22/23 06:11 Temperature 97.6 F L Temperature Source Temporal Pulse Rate 93 Respiratory Rate 16 Blood Pressure 121/73 H Blood Pressure Mean 89 BP Systolic BP Diastolic Blood Pressure Source Monitor Blood Pressure Position Semi-Fowlers Blood Pressure Location Right Arm Pulse Ox 99 Oxygen Delivery Method Room Air Weight Weight: 172 lb 2.896 oz Body Mass Index (BMI) 26.9 Physical Exam Const alert, oriented x3, no apparent distress and healthy appearing General Appearance: cooperative; Negative for anxious HEENT normocephalic Face and Sinus: normal facial exam Eyes EOMs intact bilaterally and no scleral icterus General Eye: normal appearance of both eyes Neck full ROM and supple Lymph Lymphatic: no lymphadenopathy noted Chest Chest: abnormal inspection of the chest Resp normal respiratory effort Effort and Inspection: able to speak in complete sentences Cardio regular rate GI soft to palpation and non-tender Inspection: gravid Palpation: soft; Negative for tender Back/Spine no CVA tenderness Extremity normal to inspection, full ROM and no clubbing, cyanosis or edema General Extremity: Negative for calf tenderness or edema Skin Lesions: no lesions Rashes: no rashes Psych mental status grossly normal Labs Labs Labs: 2 Blood Type O POSITIVE Antibody Screen NEGATIVE Hct 32.7 % (37-47) L Hgb 10.6 g/dL (12.0-15.0) L Obstetrics Ultrasound Syphilis Total Ab Non-reactive Rubella IgG Antibody Reactive (Nonreactive) Hep Bs Antigen Non-Reactive (Nonreactive) Hepatitis C Antibody Non-Reactive (Nonreactive) Chlamydia DNA ([place]) Negative (Negative) N.gonorrhoeae DNA ([place]) Negative (Negative) HIV 1&2 Antibody Non-Reactive (Nonreactive) Glucose 1 Hr 50 gm 154 mg/dL (70-140) H Gest Glucose Tolerance MG/DL Assessment & Plan (1) Positive GBS test: COMMENT: treat in labor (2) Anemia affecting : QUALIFIERS: Trimester: third trimester Qualified Code(s): O99.013 - Anemia complicating , third trimester COMMENT: Iron studies normal. Mild anemia. Continue OTC iron daily. repeat CBC. (3) Hx of maternal blood transfusion, currently : COMMENT: post delivery of son (4) Supervision of high-risk : QUALIFIERS: Trimester: third trimester Qualified Code(s): O09.93 - Supervision of high risk , unspecified, third trimester COMMENT: PRR, , ADRIÁN 10/29/23, PC Raul, Felix (5) : QUALIFIERS: Weeks of gestation: 38 weeks Qualified Code(s): Z3A.38 - 38 weeks gestation of COMMENT: declines genetic & carrier testing (6) Delivery by section: COMMENT: RLTCS scheduled for 10/21 @ 7:10 with JV (7) Abnormal glucose affecting : COMMENT: nl3 hr GTT
--- NOTE | 2023-10-22 07:16 | DCINST_ITS ---
Discharge Instructions Diet Discharge Diet: No restrictions Activity Discharge Activity: May Not Drive (for 2 weeks or while taking narcotic pain medications.), May Shower and May Take a Tub Bath (in 7 days.) May resume sexual activity in: 4-6 weeks Weight Bearing Status: Full weight bearing Lifting Restrictions: 20 pounds Dressing / Incision Call your doctor if your incision/area has: Continuous Slow Oozing, Sudden Increased Bleeding, Increased Pain/ Swelling, Increased Redness and Foul Smelling Discharge Call your doctor if you observe: Fever of 101 or Higher and Using more than 1 pad per hour Suture Line Care: Avoid Pulling/Pushing and Avoid Pinching/Bending Cleanse incision/area with: Soap & Water and Keep Dressing Clean & Dry Follow Up Care Please Follow Up With: Eliana Kaufman DO When: Call [phone] to make an appointment for an incision check in 1-2 weeks. Test Results: Test results from this visit will be discussed in further detail at your follow- up appointment, if applicable. Discharge Plan Admission Admit Date/Time: 10/22/23 05:23 Primary Reason for Your Visit: section Attending Provider: Eliana Kaufman Primary Care Provider: Sameera Ramos Primary Discharge Orders/Prescriptions Prescriptions: New ibuprofen 800 mg tablet 800 mg PO Q8H PRN (Reason: pain) Qty: 30 0RF oxycodone-acetaminophen [Percocet] 5-325 mg tablet 1 tab PO Q4H PRN (Reason: pain) 7 Days Qty: 20 0RF Rx Instructions: 1-2 tabs q 4 hrs as needed for pain Continued PNV-DHA 27 mg iron-1 mg -300 mg capsule 1 cap PO DAILY ferrous gluconate 324 mg (38 mg iron) tablet 324 mg PO DAILY Qty: 90 2RF Referrals / Follow Up: Kun PhysicianSameera Primary [Primary Care Provider] - Disposition Disposition (needs filled in before D/C Order can be placed): Home, Self Care
[2023-10-22] MEDS: Cefazolin 2 GM in 0.9% Normal Saline (100mL Bag) 100 ML IV (07:21)
--- NOTE | 2023-10-22 08:31 | EX.PCM.OBRPT ---
Assessment & Plan (1) Positive GBS test: COMMENT: treat in labor (2) Anemia affecting : QUALIFIERS: Trimester: third trimester Qualified Code(s): O99.013 - Anemia complicating , third trimester COMMENT: Iron studies normal. Mild anemia. Continue OTC iron daily. repeat CBC. (3) Hx of maternal blood transfusion, currently : COMMENT: post delivery of son (4) Supervision of high-risk : QUALIFIERS: Trimester: third trimester Qualified Code(s): O09.93 - Supervision of high risk , unspecified, third trimester COMMENT: PRR, , ADRIÁN 10/29/23, PC Carter, Felix (5) : QUALIFIERS: Weeks of gestation: 38 weeks Qualified Code(s): Z3A.38 - 38 weeks gestation of COMMENT: declines genetic & carrier testing (6) Delivery by section: COMMENT: RLTCS scheduled for 10/21 @ 7:10 with JV (7) Abnormal glucose affecting : COMMENT: nl3 hr GTT Maternal Data Information ADRIÁN Calculator Estimated Delivery Date Method Current WG Current Estimate 10/29/23 LMP (Certain) 39w 0d Final ADRIÁN Source: LMP Gestational age: 39 weeks 0 days Details Operative Information Date of Procedure: 10/22/23 Pre-Operative Diagnosis: @ 39 weeks 0 days, history of section, declines Post-Operative Diagnosis: @ 39 weeks 0 days, history of section, declines Indications for : Repeat Elective Classification: Scheduled Procedure Type: low transverse fun house attendant #1: Brandon Lea Type of Anesthesia: Spinal Antibiotic Given: Ancef 2 grams IV x1 Estimated Blood Loss: 500cc Procedure Start Time: 07:43 Procedure Stop Time: 08:17 Time of Delivery: 07:48 Findings Description of Procedure: Procedure: The patient was brought to the operating room and spinal anesthesia was found to be adequate. She was prepped and draped in the normal sterile fashion and was placed in a dorsal supine position with a leftward tilt. Pfannenstiel skin incision was made with a scalpel and carried through to the underlying layers. The fascia was nicked in the midline and extended laterally using Farias scissors. The anterior aspect of the fascia was grasped with Souleymane clamps and the underlying rectus muscles dissected off using the Metzenbaum scissors. The inferior aspect the fascia was also grasped with Souleymane clamps and the underlying rectus muscle dissected off with the Metzenbaum scissors. The rectus muscles were in the midline. Peritoneum was entered sharply. The uterus was identified and a bladder blade was inserted into the abdomen. Bladder flap was created off the uterus using Metzenbaum scissors. A transverse incision was made with a scalpel and extended laterally manually. The infant's head was grasped with the help of my chemical laboratory assistant and fundal pressure the infant was delivered through the uterine incision without difficulty. An loose nuchal cord x 1 was reduced. The mouth and nares were bulb suctioned. After a 30 second delay the cord was clamped and cut. The infant was handed off to the awaiting solvent plant treater for routine assessment. Placenta was delivered manually without difficulty. The uterus was exteriorized and cleared of all clots and debris. Incision was closed with an 0 Vicryl suture in a running locked fashion. Second layer of 1-0 monocryl suture was used in imbricating manner to create excellent closure and hemostasis. The uterus was returned to the abdomen. The gutters were cleared of all clots and debris. The peritoneum was closed in a pursestring pattern using a 3-0 Vicryl suture. This muscle was reapproximated with a 3-0 Vicryl. The fascia was closed with an 0-PDS suture. Subcutaneous tissue layer was closed using 3-0 vicryl suture. The skin was closed with a 4-0 Monocryl subcuticular stitch. The skin was also sealed with surgical glue. The patient tolerated the procedure well sponge lap and needle counts were correct at each tissue closure plane and the patient is now being brought to the recovery room in stable condition baby boy Walker 7 lbs 2 oz Presentation: Positive for Vertex Amniotic Fluid Description: Clear Placental Delivery Description: Manual Removal Placenta Disposition: [facility] Cord Vessel Description: 3 Vessels Cord Entanglement: None Infant A Gender: Male (1 minute): 8 (5 minute): 9 Delayed Cord Clamping: Yes Complications Risks of Surgery Discussed w/Patient: Anesthesia Risks, Infection, Need for Future C-Sections and Injury to surrounding structure(s) including bowel and bladder Multi Select Codes Urinary/Genital Urinary/Genital CPT Codes: 06862 Delivery [facility]
[2023-10-22] MEDS: Oxytocin 15 Units/NS 250ml 15 UNITS/250 ML IV.SOLN 83 UNITS IV (08:35)
[2023-10-22] MEDS: Ketorolac 30 MG/ML Syringe IV ×3 (09:04→20:30)
[2023-10-22] MEDS: Ondansetron 4 MG/2 ML Vial IV (09:19)
[2023-10-22 09:50] LABS: Syphilis Antibodies Non-reactive
[2023-10-22] MEDS: Lactated Ringers 1,000 ML 100 ML IV (11:30)
[2023-10-22] MEDS: 0.9% Saline Lock 10 ML Syringe IV ×2 (14:57→20:30)
[2023-10-23 03:01] VITALS: BP 117/83; PULSE 74; RESP 16; TEMP 36.3; O2SAT 98
[2023-10-23] MEDS: Ketorolac 30 MG/ML Syringe IV (03:04)
[2023-10-23] MEDS: 0.9% Saline Lock 10 ML Syringe IV ×2 (03:04→05:52)
[2023-10-23] MEDS: Acetaminophen 500 MG Tablet 1000 MG PO ×4 (05:45→23:57)
[2023-10-23 06:09] LABS: Hematocrit 30.3 % (37-47); Hemoglobin 9.8 g/dL (12.0-15.0); Mean Corp Hgb Conc 32.3 g/dL (32-36); Mean Corpuscular Hgb 29.1 pg (27.0-32.0); Mean Corpuscular Volume 89.9 fL (81-99); Platelet Count 178 K/mm3 (150-450); RBC Distribution Width CV 13.9 % (11.6-14.6); RBC Distribution Width SD 45.3 fl (35.1-43.9); Red Blood Count 3.37 M/mm3 (4.2-5.4); White Blood Count 8.3 K/mm3 (4.4-11.0)
[2023-10-23 07:00] VITALS: BP 116/78; PULSE 69; RESP 16; TEMP 36.4; O2SAT 96
--- NOTE | 2023-10-23 09:01 | PCM.PN.OB ---
Subjective Subjective Patient doing well without complaints. Tolerating PO. Ambulating and voiding without difficulty. Feeding well. Denies chest pain, shortness of breath, calf pain/swelling, fevers, chills, lightheadedness. Objective Data Objective Data Vital Signs: Vital Signs Temp Pulse Resp BP Pulse Ox O2 Del Method 97.5 F L 69 16 116/78 96 Room Air 10/23/23 07:00 10/23/23 07:00 10/23/23 07:00 10/23/23 07:00 10/23/23 07:00 10/23/23 07:00 Oxygen Delivery Method Room Air Weight: 172 lb 2.896 oz Body Mass Index (BMI) 26.9 Intake & Output: Intake and Output for Last 24 Hours 10/21/23 10/22/23 10/23/23 23:59 23:59 23:59 Intake Total 2677.5 / 2677.5 Output Total 1475 / 1475 400 / 400 Balance 1202.5 / 1202.5 -400 / -400 Lab / Micro Data 10/23/23 05:50 Labs: Laboratory Results - last 24 hr 10/22/23 05:40: Syphilis Total Ab Non-reactive 10/23/23 05:50: WBC 8.3, RBC 3.37 L, Hgb 9.8 L, Hct 30.3 L, MCV 89.9, MCH 29.1, MCHC 32.3, RDW Std Deviation 45.3 H, RDW Coeff of Kamila 13.9, Plt Count 178, MPV 11.0 Physical Exam Const alert and oriented x3 Eyes PERRL Neck full ROM Lymph Lymphatic: no lymphadenopathy noted Chest inspection of chest normal and inspection of breasts normal Resp normal respiratory effort, normal air movement and no retractions Effort and Inspection: able to speak in complete sentences Cardio regular rate and regular rhythm GI normal to inspection, nondistended, normoactive bowel sounds Uterus Palpation: uterus fundus firm Skin Skin Narrative: dressing c/d/i Psych mental status grossly normal Assessment & Plan (1) Status post section: COMMENT: JV (2) Delivery by section: COMMENT: RLTCS scheduled for 10/21 @ 7:10 with JV PLAN: Plan s/p LTCS PPD # 1 1. routine post care 2. breast feeding- support given 3. rh positive 4. rubella immune 5. desires early d/c home today
[2023-10-23] MEDS: Ibuprofen 600 MG Tablet PO ×3 (09:03→21:00)
[2023-10-23] MEDS: Senna/Docusate Sodium 1 Tablet PO (10:05)
[2023-10-23] MEDS: Ferrous Gluconate 324 MG Tablet PO (10:05)
[2023-10-23 12:00] VITALS: BP 107/74; PULSE 76; RESP 16; TEMP 36.3; O2SAT 98
[2023-10-23 20:50] VITALS: BP 131/89; PULSE 70; RESP 16; TEMP 36.9; O2SAT 99
[2023-10-24] MEDS: Ibuprofen 600 MG Tablet PO ×2 (02:11→09:33)
[2023-10-24 02:15] VITALS: BP 110/70; PULSE 75; RESP 16; TEMP 36.4
[2023-10-24] MEDS: Acetaminophen 500 MG Tablet 1000 MG PO (06:26)
[2023-10-24 08:30] VITALS: BP 118/81; PULSE 62; RESP 16; TEMP 36.6; O2SAT 100
--- NOTE | 2023-10-24 09:02 | PCM.PN.OB ---
Subjective Subjective Patient doing well without complaints. Tolerating PO. Ambulating and voiding without difficulty. Feeding well. Denies chest pain, shortness of breath, calf pain/swelling, fevers, chills, lightheadedness. Objective Data Objective Data Vital Signs: Vital Signs Temp Pulse Resp BP Pulse Ox O2 Del Method 97.8 F 62 16 118/81 H 100 Room Air 10/24/23 08:30 10/24/23 08:30 10/24/23 08:30 10/24/23 08:30 10/24/23 08:30 10/24/23 08:30 Oxygen Delivery Method Room Air Weight: 172 lb 2.896 oz Body Mass Index (BMI) 26.9 Intake & Output: Intake and Output for Last 24 Hours 10/22/23 10/23/23 10/24/23 23:59 23:59 23:59 Intake Total 2677.5 / 2677.5 Output Total 1475 / 1475 1000 / 1000 Balance 1202.5 / 1202.5 -1000 / -1000 Lab / Micro Data 10/23/23 05:50 Physical Exam Const alert and oriented x3 Eyes PERRL Neck full ROM Lymph Lymphatic: no lymphadenopathy noted Chest inspection of chest normal and inspection of breasts normal Resp normal respiratory effort, normal air movement and no retractions Effort and Inspection: able to speak in complete sentences Cardio regular rate and regular rhythm GI normal to inspection, nondistended, normoactive bowel sounds Uterus Palpation: uterus fundus firm Skin Skin Narrative: dressing c/d/i Psych mental status grossly normal Assessment & Plan (1) Status post section: COMMENT: JV PLAN: s/p LTCS PPD # 2 1. routine post care 2. breast feeding- support given 3. rh positive 4. rubella immune 5. plan d/c home today
--- NOTE | 2023-10-24 09:03 | PCM.DC.SUM ---
Providers Date of Admission: 10/22/23 Primary Care Physician: No Primary Care Phys Reason For Visit: REPEAT C SECTION Diagnosis Discharge Diagnosis (1) Status post section: Status: Acute Code(s): Z98.891 - History of uterine scar from previous surgery Plan: s/p LTCS PPD # 2 1. routine post care 2. breast feeding- support given 3. rh positive 4. rubella immune 5. plan d/c home today Medications at Discharge Home Medications multivitamin no.47-iron fum 27 mg-folate no.1 1 mg-dha 300 mg capsule (PNV-DHA) 1 cap PO DAILY 03/24/23 ferrous gluconate 324 mg (38 mg iron) tablet 324 mg PO DAILY Anemia #90 tabs 07/22/23 ibuprofen 800 mg tablet 800 mg PO Q8H PRN pain #30 tabs 10/22/23 oxycodone-acetaminophen 5 mg-325 mg tablet (Percocet) 1 tab PO Q4H PRN pain 7 days #20 tabs 10/22/23 Hospital Course Operations section Summary of Care Provided Minutes Spent on Discharge: 15 Hospital Course: at 39 weeks repeat c/s with normal course. pain well controlled. Physical Exam Const alert and oriented x3 Eyes PERRL Neck full ROM Lymph Lymphatic: no lymphadenopathy noted Chest inspection of chest normal and inspection of breasts normal Resp normal respiratory effort, normal air movement and no retractions Effort and Inspection: able to speak in complete sentences Cardio regular rate and regular rhythm GI normal to inspection, nondistended, normoactive bowel sounds Uterus Palpation: uterus fundus firm Skin Skin Narrative: dressing c/d/i Psych mental status grossly normal Weight / BMI Weight Weight: 172 lb 2.896 oz Body Mass Index (BMI) 26.9 ABG / Lab / Microbiology Data 10/23/23 05:50 D/C Instructions Discharge Diet: No restrictions May resume sexual activity in: 4-6 weeks Weight Bearing Status: Full weight bearing Call your doctor if your incision/area has: Continuous Slow Oozing, Sudden Increased Bleeding, Increased Pain/ Swelling, Increased Redness and Foul Smelling Discharge Call your doctor if you observe: Fever of 101 or Higher and Using more than 1 pad per hour Suture Line Care: Avoid Pulling/Pushing and Avoid Pinching/Bending Cleanse incision/area with: Soap & Water and Keep Dressing Clean & Dry Please Follow Up With: Eliana Kaufman, When: Call [phone] to make an appointment for an incision check in 1-2 weeks. Meaningful Use Info Meaningful Use Meaningful Use Diagnoses (Choose all that apply): None applicable Ischemic Stroke Statin Dosing Therapy Reference: STATIN DOSE THERAPY REFERENCE: * Patients > 75 years receive moderate or high dose statin therapy. * Patients 75 years or YOUNGER should receive HIGH intensity statin dose unless contraindicated. You will be required to document reason for non-treatment if statin daily dose does not meet guidelines. HIGH DOSE STATIN THERAPY DAILY Atorvastatin > than or = to 40 mg Rosuvastatin > than or = to 20 mg Amlodipine + Atorvastatin > than or = to 2.5/40 mg Ezetimibe + Simvastatin 10/80 mg Simvastatin 80mg Discharge Plan Admission Admit Date/Time: 10/22/23 05:23 Primary Reason for Your Visit: section Attending Provider: Eliana Kaufman Primary Care Provider: Care Physician,No Primary Discharge Orders/Prescriptions Prescriptions: New ibuprofen 800 mg tablet 800 mg PO Q8H PRN (Reason: pain) Qty: 30 0RF oxycodone-acetaminophen [Percocet] 5-325 mg tablet 1 tab PO Q4H PRN (Reason: pain) 7 Days Qty: 20 0RF Rx Instructions: 1-2 tabs q 4 hrs as needed for pain Continued PNV-DHA 27 mg iron-1 mg -300 mg capsule 1 cap PO DAILY ferrous gluconate 324 mg (38 mg iron) tablet 324 mg PO DAILY Qty: 90 2RF Referrals / Follow Up: Care Physician,No Primary [Primary Care Provider] - Disposition Disposition (needs filled in before D/C Order can be placed): Home, Self Care
[2023-10-24] MEDS: Ferrous Gluconate 324 MG Tablet PO (09:33)
[2023-10-24] MEDS: Senna/Docusate Sodium 1 Tablet PO (09:33)
== END 2023-10-24 10:55 | disposition home or self-care (01) | DRG 788 ==
PROVIDERS: Admitting Provider Obstetrics & Gynecology; Visit Provider Obstetrics & Gynecology
PROC: 10D00Z1 Extraction of Products of Conception, Low, Open Approach (ICD-10-PCS; CPT 59514; principal; 2023-10-22 07:00)
DX: O34.211 Maternal care for low transverse scar from previous cesarean delivery (principal); B95.1 Streptococcus, group B, as the cause of diseases classified elsewhere; D64.9 Anemia, unspecified; O99.02 Anemia complicating childbirth; O69.81X0 Labor and delivery complicated by cord around neck, without compression, not applicable or unspecified; Z37.0 Single live birth; O99.824 Streptococcus B carrier state complicating childbirth; Z3A.39 39 weeks gestation of pregnancy
CPT/HCPCS: 59025; 59050; 85025; 85027; 86780; 86850; 86900; 86901; 99221; J7120; A4216; G0378; J2405

== ENCOUNTER 2023-10-29 00:46 | Outpatient (CLI) | payer BC, SELFPAY ==
[2023-10-29] VITALS (27 sets, daily range): BP systolic 119–159; BP diastolic 68–115; PULSE 62–89; RESP 0–21; TEMP 36–36.8; O2SAT 15–100; BMI 25.8
--- NOTE | 2023-10-29 01:10 | RAD_ITS ---
INDICATION: chest pain EXAMINATION/TECHNIQUE: X-RAY - XR Chest 2 Views COMPARISON: No relevant prior comparison study available FINDINGS: LINES/DEVICES: None. LUNGS: No consolidation, edema or effusion. No pneumothorax. MEDIASTINUM AND CARDIOVASCULAR STRUCTURES: Cardiac silhouette not enlarged. Central airways and mediastinal contour are unremarkable. BONES AND SOFT TISSUES: Unremarkable. RAD/Chest PA and Lateral IMPRESSION: No radiographic evidence of acute cardiopulmonary disease. Electronically Signed: Luz Maria Rodriguez MD at 2:39 EDT ,
--- NOTE | 2023-10-29 01:10 | CT_ITS ---
INDICATION: headache EXAMINATION: CT BRAIN - CT Head or Brain W/O Contrast Injection TECHNIQUE: Multiple axial images were obtained of the head without intravenous contrast. The protocol utilizes one or more of the following dose reduction techniques: automated exposure control, adjustment of mA and/or kV according to patient size,and/or use of iterative reconstruction technique. IV Contrast dosage and agent: None. RADIATION DOSAGE (If Supplied By Facility): CTDIvol = ( 44.99 ) mGy, DLP = ( 796.11 ) mGycm COMPARISON: No relevant prior comparison study available FINDINGS: BRAIN PARENCHYMA: No intra- or extra-axial hemorrhage. No evidence of acute infarct. No intracranial mass or mass effect. There is preservation of the gaines/white matter interface. Posterior fossa structures are unremarkable. CSF SPACES: Appropriate for age. No hydrocephalus. Basal cisterns are patent. CALVARIUM, SKULL BASE, PARANASAL SINUSES AND MASTOID AIR CELLS: Clear. No discrete lytic or blastic abnormalities. ORBITS: Both globes, extraocular muscles, optic nerves and retrobulbar fat appear unremarkable. ASPECTS Score for Acute Strokes: 10 CT/Brain/Head without Contrast IMPRESSION: Negative Brain CT without contrast. Electronically Signed: Luz Maria Rodriguez MD at 2:17 EDT ,
[2023-10-29] MEDS: Labetalol (Prefilled) 20 MG/4 ML 10 MG IV (01:24)
[2023-10-29 01:30] LABS: Absolute Lymphocyte Count 2.39 X10^3/uL (0.83-4.51); Absolute Neutrophil Count 3.7 X10^3/uL (2.0-7.7); Basophil# 0.07 X10^3/uL; Eosinophil# 0.23 X10^3/uL; Eosinophils% 3.3 % (0-5); Hematocrit 31.2 % (37-47); Lymphocyte # 2.39 X10^3/ul (0.83-4.51); Lymphocyte % 34.6 % (19-41); Mean Corp Hgb Conc 32.1 g/dL (32-36); Mean Corpuscular Hgb 28.6 pg (27.0-32.0); Mean Corpuscular Volume 89.1 fL (81-99); Mean Platelet Vol. 9.9 fl (6.2-12.0); Monocyte# 0.48 X10^3/uL; Monocyte% 6.9 % (0-10); NRBC Flagged by Analyzer 0 % (0-5); Neutrophil # 3.71 X10^3/uL (2.7-7.7); Neutrophil % 53.8 % (47-70); Platelet Count 307 K/mm3 (150-450); RBC Distribution Width CV 13.4 % (11.6-14.6); RBC Distribution Width SD 43.9 fl (35.1-43.9); White Blood Count 6.9 K/mm3 (4.4-11.0)
--- NOTE | 2023-10-29 01:46 | ED.RN ---
AT THIS TIME PROVIDER Jelly STONE UPDATED OF BLOOD PRESSURE FOLLOWING THE FIRST LABETALOL DOSE. I WAS INSTRUCTED TO HOLD LABETALOL FOR SYSTOLIC BP LESS THAN 150.
[2023-10-29 01:58] LABS: AST(SGOT) 24 U/L (15-37); Alanine Aminotransfer ALT/SGPT 35 U/L (13-56); Albumin, Serum 2.5 g/dL (3.2-5.0); Alkaline Phosphatase 126 U/L (45-117); Anion Gap 6 (5-15); BUN 13 mg/dL (7-18); BUN/Creat Ratio 14.9 RATIO (10-20); Bilirubin, Direct 0.08 mg/dL (0.00-0.30); Calcium,Total 8.4 mg/dL (8.5-10.1); Chloride 108 mmol/L (98-107); Creatinine, Serum 0.87 mg/dL (0.55-1.02); EST Glomerular Filtration Rate 82 mL/min (>60); Est Glom Filt Rate - Afr Amer 99 mL/min (>60); Estimated Creatinine Clearance 100.74 ml/min; Globulin 4.3 g/dL (2.2-4.2); Glucose 92 mg/dL (74-106); LDH 220 U/L (84-246); Potassium 3.8 mmol/L (3.5-5.1); Protein, Total 6.8 g/dL (6.4-8.2); Sodium Level 140 mmol/L (136-145); Troponin-I HS 5 pg/mL (3.0-54.0)
--- NOTE | 2023-10-29 02:13 | CT_ITS ---
We are attempting to reach an attending provider to discuss findings. An addendum with communication details will be sent when the communication is complete. STUDY: CTA CHEST REASON FOR EXAM: Female, 28 years old. chest pain with elevated d-dimer RADIATION DOSAGE (If Supplied By Facility): CTDIvol = ( 11.04 ) mGy, DLP = ( 336.15 ) mGycm TECHNIQUE: The examination was performed with the intravenous administration of IV 100mL Isovue-370. Post-processing of the angiographic images was performed, with multiplanar reformation and 3D reconstruction. The protocol utilizes one or more of the following dose reduction techniques: automated exposure control, adjustment of mA and/or kV according to patient size,and/or use of iterative reconstruction technique. COMPARISON: No relevant prior comparison study available FINDINGS: Segmental subsegmental pulmonary embolus in the right middle lobe lateral segment . Normal thoracic aorta and visualized great vessels. There is no demonstrated aortic dissection. Normal heart and pericardium. Normal mediastinum. Normal hilar regions. Normal visualized trachea and bronchi. The lungs are well expanded. Normal pulmonary parenchyma. Normal pleura. Normal chest wall structures. Normal osseous structures. Normal visualized upper abdomen. CT/CTA Chest W/WO Contrast IMPRESSION: Segmental subsegmental pulmonary embolus in the right middle lobe lateral segment . Electronically Signed: Luz Maria Rodriguez MD at 3:37 EDT ,
[2023-10-29 02:15] LABS: D-Dimer Quantitative (DVT/PE) 1.36 FEU/ug/m (0.27-0.49)
[2023-10-29 02:20] LABS: Prothrombin Time (Protime)PT. 13.2 SECONDS (11.7-14.9)
[2023-10-29 02:21] LABS: Partial Thromboplast Time 29.9 Seconds (24.1-36.2)
[2023-10-29] MEDS: Ketorolac 30 MG/ML Syringe IV (02:41)
--- NOTE | 2023-10-29 04:05 | EDS_ITS ---
HPI History of Present Illness Chief Complaint: Chest Pain Informant: patient and spouse/S.O. Narrative Narrative: Patient is a G2, P2 female 6 days and she delivered by . She reports she was doing well at home but today developed a headache more in the frontal region and noticed her blood pressure to be high. She also states has been of vague left-sided chest discomfort but there is no nausea vomiting diaphoresis or shortness of breath associated with this. She states she contacted [facility] and they advised her to come to the hospital for further evaluation and therefore she presents at this time [facility] Medical History History of blood transfusion hemorrhage Seasonal allergies Home Medications ?Medication ?Instructions ?Recorded ?Last Taken ?Type ferrous gluconate 324 mg (38 mg 324 mg PO DAILY Anemia #90 tabs 07/22/23 10/20/23 20:00 Rx iron) tablet 324 mg ibuprofen 800 mg tablet 800 mg PO Q8H PRN pain #30 tabs 10/22/23 10/28/23 Rx oxycodone-acetaminophen 5 mg-325 1 tab PO Q4H PRN pain 7 days #20 10/22/23 10/28/23 18:00 Rx mg tablet (Percocet) tabs apixaban 5 mg (74 tabs) tablets in See Rx Instructions PO .COMPLEX 10/29/23 Unknown Rx a dose pack (Eliquis DVT-PE Treat #74 tabs 30D Start) Allergy/AdvReac Type Severity Reaction Status Date / Time No Known Allergies Allergy Verified 10/29/23 05:56 Family History Grandmother Breast cancer, Onset Age: 69 paternal Father Heart disease Grandfather Heart disease Prostate cancer Grandmother Breast cancer, Onset Age: 50 Maternal Surgical History Status post section Roberta teeth removed Delivery by section History of eye surgery Social History adopted: No household members: spouse and children number of children: 1 current occupational status: employed current occupation: self - photography current occupational exposures/hazards: No pets and animals: Yes (avoid litter box) pets and animals: cat(s) history of recent travel: [place] ([place]) out of state: Yes out of country: No sexually active: Yes Smoking Status: Never smoker alcohol intake: current alcohol intake frequency: a few times a month details: not while substance use type: does not use well-balanced diet: daily or most days caffeine: No eating out: 1-3 times/week during the past year weight has: remained stable what type of physical activity do you participate in: walking frequency: 1-2 times per week duration: 30-45 minutes/day lizeth/protestant: Denominational seatbelt use: always do you feel safe at home: Yes additional social history: - Felix Torres ROS ROS ED Constitutional Constitutional ED: Denies chills or fever(s) Eyes Eyes: Denies blurry vision or change in vision ENT ENT ED: Denies sore throat Cardiovascular Cardiovascular: Reports chest pain; Denies palpitations or racing heartbeat Respiratory/Chest Respiratory/Chest: Denies cough or dyspnea Gastrointestinal Gastrointestinal: Reports abdominal pain; Denies diarrhea, nausea or vomiting Genitourinary Genitourinary ED: Denies dysuria Musculoskeletal Musculoskeletal: Denies back pain Integumentary Denies rash Neurologic Neurologic: Reports headache(s); Denies paresthesias or weakness Hematologic/Lymphatic Hematologic/Lymphatic: Denies easy bleeding or easy bruising EXAM Physical Exam Const Vital Signs: 10/29/23 00:47 10/29/23 01:12 10/29/23 01:19 Temperature 96.8 F L Temperature Source Temporal Pulse Rate 77 77 Respiratory Rate 18 18 Respiratory Effort Normal Blood Pressure 159/115 H 152/99 H Blood Pressure Mean 129 116 Pulse Ox 100 97 Oxygen Delivery Method Room Air Room Air 10/29/23 01:23 10/29/23 01:30 10/29/23 01:41 Temperature Temperature Source Pulse Rate 71 Respiratory Rate 21 H 12 Respiratory Effort Blood Pressure 130/93 H Blood Pressure Mean 104 Pulse Ox 98 99 Oxygen Delivery Method Room Air 10/29/23 01:45 10/29/23 01:54 10/29/23 02:00 Temperature Temperature Source Pulse Rate 73 70 Respiratory Rate 0 L 11 L 17 Respiratory Effort Blood Pressure 134/99 H 121/90 H Blood Pressure Mean 110 100 Pulse Ox 98 99 98 Oxygen Delivery Method Room Air 10/29/23 03:02 10/29/23 04:00 10/29/23 05:00 Temperature Temperature Source Pulse Rate 65 70 69 Respiratory Rate 18 16 16 Respiratory Effort Blood Pressure 124/91 H 130/91 H 142/99 H Blood Pressure Mean 102 104 113 Pulse Ox 99 99 99 Oxygen Delivery Method Room Air Room Air Room Air 10/29/23 05:09 Temperature 97.7 F L Temperature Source Pulse Rate 68 Respiratory Rate 16 Respiratory Effort Blood Pressure 142/99 H Blood Pressure Mean 113 Pulse Ox 100 Oxygen Delivery Method Positive well nourished and well developed General Appearance ED: well developed; Negative for pallor HEENT HEENT Narrative: Normocephalic atraumatic Eyes PERRL and EOMs intact bilaterally General Eye ED: Negative for pale conjunctiva or scleral icterus Neck supple Neck Narrative: No nuchal rigidity or meningeal signs noted Chest Wall palpation of chest normal Chest Narrative: No bony deformity or crepitance upon palpation of the chest wall No reproducible pain noted Resp normal respiratory effort and clear to auscultation bilaterally Resp Narrative: No nasal flaring retractions tachypnea or accessory muscle use Cardio regular rate and regular rhythm Rate: other Other Details: Heart is regular rate and rhythm without murmurs rubs or gallops Radial and carotid pulses are equal and symmetric GI non-distended and no masses GI Narrative: Abdomen is soft and nondistended with normal active bowel sounds. Patient has a surgical incision in the lower abdomen consistent with recent . Wound is clean dry and intact without secondary changes to suggest infection. There is mild diffuse pain on palpation along the lower abdomen consistent with her recent surgery but no voluntary guarding or rigidity or pulsatile mass. Auscultation: normoactive bowel sounds Palpation: soft Extremity normal to inspection Extremity Narrative: No asymmetric edema no pitting edema negative Homans' sign bilaterally Neuro oriented x3, CN's II-XII intact bilaterally and no sensory deficits noted Neuro Narrative: GCS of 15 Cranial nerves II through XII are grossly intact there are no focal neurologic deficits. No pronator drift no dysmetria no truncal ataxia NIH stroke scale score of 0 Sensorium / Orientation: alert Motor Exam: strength 5/5 throughout Psych mental status grossly normal Skin no rashes or lesions noted Skin Narrative: Surgical wound to the lower abdomen as documented above General Skin Exam: Negative for jaundice or pallor MDM MDM MDM Narrative Medical decision making narrative: Patient arrived to the ER hypertensive but otherwise with stable vitals. She did normal neurologic exam and there was no reproducible pain with palpation of the chest or pleuritic chest pain. Based on her headache and hypertension patient could have preeclampsia or help syndrome. There is concern for spontaneous subarachnoid or subdural bleed as well. With the chest discomfort there is concern for potential pneumonia versus pneumothorax versus pneumomediastinum or pulmonary embolus. Basic blood work was obtained and reveals normal white count going against infectious process as well as stable H&H. LDH uric acid and liver enzymes are normal as well going against preeclampsia. The patient's D-dimer is elevated at 1.4 and this could be secondary to her recent and surgery but also for potential PE so CTA was added. This revealed a small subsegmental right-sided pulmonary embolus. This does not correlate with the location of her chest pain that she reports is left-sided but patient did have risk factors for PE with her hypercoagulable state from and recent surgery. As there is no heart strain and she is not hypoxic or having derangement to her vitals other than hypertension there is no need for admission or use of TNK. Patient can simply be started on Eliquis secondary to the clot. The patient's case was discussed with [facility] on-call. She has had improvement after labetalol and overall workup does not suggest preeclampsia but in order to continue to monitor for this they do recommend that she now go up to [facility] for continued monitoring. This plan of care was discussed with the patient and she is agreeable to it History & Record Review Discussion w/independent historian: Patient and Significant other Lab Data Attestation: I reviewed the patient's lab results. Labs: Laboratory Results - last 24 hr 10/29/23 01:20 WBC 6.9 RBC 3.50 L Hgb 10.0 L Hct 31.2 L MCV 89.1 MCH 28.6 MCHC 32.1 RDW Std Deviation 43.9 RDW Coeff of Kamila 13.4 Plt Count 307 MPV 9.9 Immature Gran % (Auto) 0.400 Neut % (Auto) 53.8 Lymph % (Auto) 34.6 Bland % (Auto) 6.9 Eos % (Auto) 3.3 Baso % (Auto) 1.0 Absolute Neuts (auto) 3.7 Absolute Lymphs (auto) 2.39 Nucleated RBC % 0 PT 13.2 INR 1.0 APTT 29.9 D-Dimer Quant (PE/DVT) 1.36 H* Sodium 140 Potassium 3.8 Chloride 108 H Carbon Dioxide 26.0 Anion Gap 6 BUN 13 Creatinine 0.87 Estim Creat Clear Calc 100.74 Est GFR (MDRD) Af Amer 99 Est GFR (MDRD) Non-Af 82 BUN/Creatinine Ratio 14.9 Glucose 92 Uric Acid 6.0 Calcium 8.4 L Total Bilirubin 0.20 Direct Bilirubin 0.08 AST 24 ALT 35 Alkaline Phosphatase 126 H Lactate Dehydrogenase 220 Troponin I High Sens 5 Total Protein 6.8 Albumin 2.5 L Globulin 4.3 H Radiography Diagnostic Testing: Clinical Impression(s) from Imaging Studies Brain CT 10/29/23 01:10 IMPRESSION: Negative Brain CT without contrast. Electronically Signed: Luz Maria Rodriguez MD at 2:17 EDT , Chest X-Ray 10/29/23 01:10 IMPRESSION: No radiographic evidence of acute cardiopulmonary disease. Electronically Signed: Luz Maria Rodriguez MD at 2:39 EDT , Chest CTA 10/29/23 02:13 IMPRESSION: Segmental subsegmental pulmonary embolus in the right middle lobe lateral segment . Electronically Signed: Luz Maria Rodriguez MD at 3:37 EDT , ADDENDUM: 10/29/23 0346 IMPRESSION: Segmental subsegmental pulmonary embolus in the right middle lobe lateral segment . N.B. : The above Results were Read Back by Luz Maria Rodriguez MD to Rigoberto Rosas DO, and understanding confirmed on 10/29/2023 03:39:23 (ET). Electronically Signed: Luz Maria Rodriguez MD at 3:37 EDT , Chest x-ray as interpreted by the emergency medicine physician reveals no acute infiltrate pneumothorax or pleural effusion Management Discussion w/another healthcare provider: [facility] Roll Operator Discharge Plan Triage Chief Complaint: Chest Pain ED Provider: Rigoberto Rosas Dx/Rx/DC Orders Clinical Impression: Single subsegmental pulmonary embolism without acute cor pulmonale, Hypertension Primary Care Provider: Care Physician,No Primary Disposition Disposition: Home, Self Care Discharge Date/Time: 10/29/23 05:20
[2023-10-29] MEDS: APIXABAN 5 MG TABLET 10 MG PO (05:06)
[2023-10-29] MEDS: Labetalol 200 MG Tablet PO (06:12)
--- NOTE | 2023-10-29 07:49 | PCM.HP.STD ---
HPI - General General Date of Admission: 10/29/23 HPI Narrative RONEY MENDENHALL, is a 28 F who presents with acute chest pain. She is 6 days from a , she is not breast-feeding. She presented through the ER last night with increasing chest pain and was diagnosed with a PE. She initially had elevated blood pressures which resolved with 1 dose of labetalol. Preeclampsia workup was negative. She did not have elevated blood pressures in . [facility] Medical History (Updated 10/29/23 @ 07:[address] Chioma Weinstein MD) History of blood transfusion hemorrhage Seasonal allergies Home Medications ?Medication ?Instructions ?Recorded ?Last Taken ?Type ferrous gluconate 324 mg (38 mg 324 mg PO DAILY Anemia #90 tabs 07/22/23 10/20/23 20:00 Rx iron) tablet 324 mg ibuprofen 800 mg tablet 800 mg PO Q8H PRN pain #30 tabs 10/22/23 10/28/23 Rx oxycodone-acetaminophen 5 mg-325 1 tab PO Q4H PRN pain 7 days #20 10/22/23 10/28/23 18:00 Rx mg tablet (Percocet) tabs apixaban 5 mg (74 tabs) tablets in See Rx Instructions PO .COMPLEX 10/29/23 Unknown Rx a dose pack (Eliquis DVT-PE Treat #74 tabs 30D Start) Allergy/AdvReac Type Severity Reaction Status Date / Time No Known Allergies Allergy Verified 10/29/23 05:56 Family History Grandmother Breast cancer, Onset Age: 69 paternal Father Heart disease Grandfather Heart disease Prostate cancer Grandmother Breast cancer, Onset Age: 50 Maternal Surgical History Status post section [place] teeth removed Delivery by section History of eye surgery Social History adopted: No household members: spouse and children number of children: 1 current occupational status: employed current occupation: self - photography current occupational exposures/hazards: No pets and animals: Yes (avoid litter box) pets and animals: cat(s) history of recent travel: [place] ([place]) out of state: Yes out of country: No sexually active: Yes Smoking Status: Never smoker alcohol intake: current alcohol intake frequency: a few times a month details: not while substance use type: does not use well-balanced diet: daily or most days caffeine: No eating out: 1-3 times/week during the past year weight has: remained stable what type of physical activity do you participate in: walking frequency: 1-2 times per week duration: 30-45 minutes/day lizeth/cheondoism: Advent seatbelt use: always do you feel safe at home: Yes additional social history: - Felix SILVERMAN Constitutional Constitutional: Reports systems reviewed and no addt'l complaints, except as documented; Denies as per HPI, fever(s) or other Eyes Eyes: Reports systems reviewed and no addt'l complaints, except as documented; Denies as per HPI, change in vision or other ENT HEENT: Reports systems reviewed and no addt'l complaints, except as documented Gastrointestinal Gastrointestinal: Reports systems reviewed and no addt'l complaints, except as documented and as per HPI Genitourinary Genitourinary: Reports as per HPI Musculoskeletal Musculoskeletal: Reports systems reviewed and no addt'l complaints, except as documented Neurologic Neurologic: Reports systems reviewed and no addt'l complaints, except as documented Psychiatric Psychiatric: Reports systems reviewed and no addt'l complaints, except as documented Endocrine Endocrinology: Reports systems reviewed and no addt'l complaints, except as documented Hematologic/Lymphatic Hematologic/Lymphatic: Reports systems reviewed and no addt'l complaints, except as documented Vital Signs Vital Signs Vital Signs: 10/29/23 00:47 10/29/23 01:12 10/29/23 01:19 Temperature 96.8 F L Temperature Source Temporal Pulse Rate 77 77 Respiratory Rate 18 18 Respiratory Effort Normal Blood Pressure 159/115 H 152/99 H Blood Pressure Mean 129 116 BP Systolic BP Diastolic Pulse Ox 100 97 Oxygen Delivery Method Room Air Room Air 10/29/23 01:23 10/29/23 01:30 10/29/23 01:41 Temperature Temperature Source Pulse Rate 71 Respiratory Rate 21 H 12 Respiratory Effort Blood Pressure 130/93 H Blood Pressure Mean 104 BP Systolic BP Diastolic Pulse Ox 98 99 Oxygen Delivery Method Room Air 10/29/23 01:45 10/29/23 01:54 10/29/23 02:00 Temperature Temperature Source Pulse Rate 73 70 Respiratory Rate 0 L 11 L 17 Respiratory Effort Blood Pressure 134/99 H 121/90 H Blood Pressure Mean 110 100 BP Systolic BP Diastolic Pulse Ox 98 99 98 Oxygen Delivery Method Room Air 10/29/23 03:02 10/29/23 04:00 10/29/23 05:00 Temperature Temperature Source Pulse Rate 65 70 69 Respiratory Rate 18 16 16 Respiratory Effort Blood Pressure 124/91 H 130/91 H 142/99 H Blood Pressure Mean 102 104 113 BP Systolic BP Diastolic Pulse Ox 99 99 99 Oxygen Delivery Method Room Air Room Air Room Air 10/29/23 05:09 10/29/23 05:43 10/29/23 05:43 Temperature 97.7 F L Temperature Source Pulse Rate 68 78 Respiratory Rate 16 Respiratory Effort Blood Pressure 142/99 H Blood Pressure Mean 113 BP Systolic BP Diastolic Pulse Ox 100 99 Oxygen Delivery Method 10/29/23 05:44 10/29/23 05:44 10/29/23 05:47 Temperature Temperature Source Pulse Rate 81 Respiratory Rate Respiratory Effort Blood Pressure 141/84 H Blood Pressure Mean BP Systolic 141 BP Diastolic 84 Pulse Ox 90 Oxygen Delivery Method 10/29/23 05:47 10/29/23 05:48 10/29/23 05:48 Temperature Temperature Source Pulse Rate 70 73 Respiratory Rate Respiratory Effort Blood Pressure Blood Pressure Mean BP Systolic BP Diastolic Pulse Ox 99 Oxygen Delivery Method 10/29/23 05:53 10/29/23 05:53 10/29/23 05:58 Temperature Temperature Source Pulse Rate 71 66 Respiratory Rate Respiratory Effort Blood Pressure Blood Pressure Mean BP Systolic BP Diastolic Pulse Ox 99 Oxygen Delivery Method 10/29/23 05:58 10/29/23 06:03 10/29/23 06:03 Temperature Temperature Source Pulse Rate 68 Respiratory Rate Respiratory Effort Blood Pressure Blood Pressure Mean BP Systolic BP Diastolic Pulse Ox 98 97 Oxygen Delivery Method 10/29/23 06:08 10/29/23 06:08 10/29/23 06:29 Temperature Temperature Source Pulse Rate 62 Respiratory Rate Respiratory Effort Blood Pressure 139/88 H Blood Pressure Mean BP Systolic 139 BP Diastolic 88 Pulse Ox 97 Oxygen Delivery Method 10/29/23 06:29 Temperature Temperature Source Pulse Rate 67 Respiratory Rate Respiratory Effort Blood Pressure Blood Pressure Mean BP Systolic BP Diastolic Pulse Ox Oxygen Delivery Method Weight Weight: 164 lb 14.492 oz Body Mass Index (BMI) 25.8 Physical Exam Const alert, oriented x3 and no apparent distress HEENT normocephalic Head and Scalp: atraumatic Eyes EOMs intact bilaterally and conjunctivae normal Neck full ROM, no lymphadenopathy, supple and thyroid normal General: trachea midline Lymph Lymphatic: no lymphadenopathy noted Resp normal respiratory effort, no retractions and clear to auscultation bilaterally Cardio regular rhythm GI soft to palpation, non-distended and no masses Inspection: Negative for abdominal distention Back/Spine no CVA tenderness Extremity normal to inspection Skin no rashes or lesions noted Neuro moves all extremities and deep tendon reflexes 2+ bilaterally Psych mental status grossly normal Results Lab / Micro Data 10/29/23 01:20 10/29/23 01:20 Labs: Laboratory Results - last 24 hr 10/29/23 01:20: WBC 6.9, RBC 3.50 L, Hgb 10.0 L, Hct 31.2 L, MCV 89.1, MCH 28.6, MCHC 32.1, RDW Std Deviation 43.9, RDW Coeff of Kamila 13.4, Plt Count 307, MPV 9.9, Immature Gran % (Auto) 0.400, Neut % (Auto) 53.8, Lymph % (Auto) 34.6, [place] % (Auto) 6.9, Eos % (Auto) 3.3, Baso % (Auto) 1.0, Absolute Neuts (auto) 3.7, Absolute Lymphs (auto) 2.39, Nucleated RBC % 0, PT 13.2, INR 1.0, APTT 29.9, D-Dimer Quant (PE/DVT) 1.36 H*, Sodium 140, Potassium 3.8, Chloride 108 H, Carbon Dioxide 26.0, Anion Gap 6, BUN 13, Creatinine 0.87, Estim Creat Clear Calc 100.74, Est GFR (MDRD) Af Amer 99, Est GFR (MDRD) Non-Af 82, BUN/Creatinine Ratio 14.9, Glucose 92, Uric Acid 6.0, Calcium 8.4 L, Total Bilirubin 0.20, Direct Bilirubin 0.08, AST 24, ALT 35, Alkaline Phosphatase 126 H, Lactate Dehydrogenase 220, Troponin I High Sens 5, Total Protein 6.8, Albumin 2.5 L, Globulin 4.3 H Imaging Radiology Impression Brain CT 10/29/23 01:10 IMPRESSION: Negative Brain CT without contrast. Electronically Signed: Luz Maria Rodriguez MD at 2:17 EDT , Chest X-Ray 10/29/23 01:10 IMPRESSION: No radiographic evidence of acute cardiopulmonary disease. Electronically Signed: Luz Maria Rodriguez MD at 2:39 EDT , Chest CTA 10/29/23 02:13 IMPRESSION: Segmental subsegmental pulmonary embolus in the right middle lobe lateral segment . Electronically Signed: Luz Maria Rodriguez MD at 3:37 EDT Reading Location ID and State: [facility] / [place] Tel , Service support , ADDENDUM: 10/29/23 0346 IMPRESSION: Segmental subsegmental pulmonary embolus in the right middle lobe lateral segment . N.B. : The above Results were Read Back by Luz Maria Rodriguez MD to Rigoberto Rosas DO, and understanding confirmed on 10/29/2023 03:39:23 (ET). Electronically Signed: Luz Maria Rodriguez MD at 3:37 EDT Reading Location ID and State: [facility] / [place] Tel , Service support , Assessment & Plan Assessment/Plan (1) Single subsegmental pulmonary embolism without acute cor pulmonale: (2) Hypertension: PLAN: Plan Labetalol x 1 given. Preeclampsia workup negative. Will follow blood pressures during admission and repeat labs in several hours. Eliquis given for PE, medicine consulted for management. Charges/Coding Visit Charges Inpatient E&M: 71591 Init Hosp L3
[2023-10-29] MEDS: Mag /Aluminum/Simeth WCH UDC 30 ML ORAL.SUSP PO (07:55)
--- NOTE | 2023-10-29 08:49 | PCM.CONS.GEN ---
Assessment & Plan Assessment/Plan (1) Single subsegmental pulmonary embolism without acute cor pulmonale: PLAN: I suspect the PE was likely provoked given her recent , hospitalization. Patient is non-smoker. I feel the recommendation for treatment would be 6 months of anticoagulation. Since the patient has verify that she is not going to be breast-feeding, I feel a direct acting oral anticoagulant would be most appropriate. Patient is already received apixaban which I feel is very reasonable and we will continue with that. So the dosing for that would be 10 mg twice daily for 1 week and then 5 mg twice daily to complete a 6 months course. If there is an insurance issue where rivaroxaban would be covered then that would be appropriate as well (dosing for that is 15 mg twice daily for 21 days followed by 20 mg daily). If in event that the patient decides to breast-feed then patient would need to be transitioned over to warfarin. She would likely need to be bridged with enoxaparin 1 mg/kg twice daily until her INR is therapeutic. Patient advised to contact her application defense manager if she were to decide on that. (2) Hypertension: PLAN: May be reactive in regards to the chest pain and headache that she was experiencing. Patient did receive labetalol in the emergency room. I do not feel that antihypertensives are necessary at this time. But encouraged her to give staff to the primary care doctor so that she can be checked on periodically as well as to have a blood pressure check. Also stated that she could also have a sphygmomanometer (BP machine) at home to check her blood pressures. Advised her that if she does check her blood pressure at home to be at rest for several minutes before checking it. PLAN: Plan Thank for the consult. Patient is medically stable for discharge from a medical perspective. Please call with questions/concerns. HPI Consult Data Date of Consult: 10/29/23 HPI Narrative Reason for Consultation: Consult requested by Dr. Weinstein for PE HPI Narrative: RONEY MENDENHALL, is a 28 F who presents with left-sided chest pain. Is a 28-year-old female who just underwent a section October 21 and was discharged on the . She developed acute onset of left-sided chest pain and presented to the emergency room. Her blood pressure was 159/115 and did receive 2 doses of 10 mg of labetalol. She did undergo a CTA of her chest that showed a segmental subsegmental pulmonary embolism in the right middle lobe. She received 5 mg of apixaban in the emergency room and [facility]. She has never had pulmonary embolism or VTE before. She denies any right-sided chest pain or any shortness of breath. Patient did have also did have frontal headache. That did resolve in the emergency room after administration of ketorolac. [facility] Medical History History of blood transfusion hemorrhage Seasonal allergies Home Medications ?Medication ?Instructions ?Recorded ?Last Taken ?Type ferrous gluconate 324 mg (38 mg 324 mg PO DAILY Anemia #90 tabs 07/22/23 10/20/23 20:00 Rx iron) tablet 324 mg ibuprofen 800 mg tablet 800 mg PO Q8H PRN pain #30 tabs 10/22/23 10/28/23 Rx oxycodone-acetaminophen 5 mg-325 1 tab PO Q4H PRN pain 7 days #20 10/22/23 10/28/23 18:00 Rx mg tablet (Percocet) tabs apixaban 5 mg (74 tabs) tablets in See Rx Instructions PO .COMPLEX 10/29/23 Unknown Rx a dose pack (Eliquis DVT-PE Treat #74 tabs 30D Start) Allergy/AdvReac Type Severity Reaction Status Date / Time No Known Allergies Allergy Verified 10/29/23 05:56 Family History Grandmother Breast cancer, Onset Age: 69 paternal Father Heart disease Grandfather Heart disease Prostate cancer Grandmother Breast cancer, Onset Age: 50 Maternal Surgical History Status post section [place] teeth removed Delivery by section History of eye surgery Social History adopted: No household members: spouse and children number of children: 1 current occupational status: employed current occupation: self - photography current occupational exposures/hazards: No pets and animals: Yes (avoid litter box) pets and animals: cat(s) history of recent travel: [place] ([place]) out of state: Yes out of country: No sexually active: Yes Smoking Status: Never smoker alcohol intake: current alcohol intake frequency: a few times a month details: not while substance use type: does not use well-balanced diet: daily or most days caffeine: No eating out: 1-3 times/week during the past year weight has: remained stable what type of physical activity do you participate in: walking frequency: 1-2 times per week duration: 30-45 minutes/day lizeth/mandaeism: Mu-Ism seatbelt use: always do you feel safe at home: Yes additional social history: - Felix SILVERMAN Narrative No lower extremity edema. All review of systems were negative except as mentioned above in the history of present illness and the other review of systems. Physical Exam Narrative - Physical Exam General: Alert, Oriented x3, Cooperative HEENT: Atraumatic, PERRLA, EOMI, Normocephalic Oral: Moist Mucosa, No Gingival or Mucosal Lesions/ Ulcerations Neck: Supple, No JVD, Negative Carotid Bruits Lungs: Clear to auscultation, Normal air movement Cardiovascular: Regular rate, Normal S1, Normal S2, No murmurs Abdomen: Bowel Sounds Present, Soft, Non Tender, Non-Distended, No Hepato-splenomegaly Extremities: No clubbing, No cyanosis, No edema, Capillary Refill Less than 3 Seconds Skin: No rashes, No breakdown Musculoskeletal: No Tenderness to Palpation of Joints or Extremities Neurological: Neuro grossly intact Psych/Mental Status: Normal Affect, Appropriate No reproducible left-sided chest pain. Lab / Micro Data 10/29/23 01:20 10/29/23 01:20 Labs: Laboratory Results - last 24 hr 10/29/23 01:20: WBC 6.9, RBC 3.50 L, Hgb 10.0 L, Hct 31.2 L, MCV 89.1, MCH 28.6, MCHC 32.1, RDW Std Deviation 43.9, RDW Coeff of Kamila 13.4, Plt Count 307, MPV 9.9, Immature Gran % (Auto) 0.400, Neut % (Auto) 53.8, Lymph % (Auto) 34.6, Yell % (Auto) 6.9, Eos % (Auto) 3.3, Baso % (Auto) 1.0, Absolute Neuts (auto) 3.7, Absolute Lymphs (auto) 2.39, Nucleated RBC % 0, PT 13.2, INR 1.0, APTT 29.9, D-Dimer Quant (PE/DVT) 1.36 H*, Sodium 140, Potassium 3.8, Chloride 108 H, Carbon Dioxide 26.0, Anion Gap 6, BUN 13, Creatinine 0.87, Estim Creat Clear Calc 100.74, Est GFR (MDRD) Af Amer 99, Est GFR (MDRD) Non-Af 82, BUN/Creatinine Ratio 14.9, Glucose 92, Uric Acid 6.0, Calcium 8.4 L, Total Bilirubin 0.20, Direct Bilirubin 0.08, AST 24, ALT 35, Alkaline Phosphatase 126 H, Lactate Dehydrogenase 220, Troponin I High Sens 5, Total Protein 6.8, Albumin 2.5 L, Globulin 4.3 H Imaging Radiology Impression Brain CT 10/29/23 01:10 IMPRESSION: Negative Brain CT without contrast. Electronically Signed: Luz Maria Rodriguez MD at 2:17 EDT , Chest X-Ray 10/29/23 01:10 IMPRESSION: No radiographic evidence of acute cardiopulmonary disease. Electronically Signed: Luz Maria Rodriguez MD at 2:39 EDT , Chest CTA 10/29/23 02:13 IMPRESSION: Segmental subsegmental pulmonary embolus in the right middle lobe lateral segment . Electronically Signed: Luz Maria Rodriguez MD at 3:37 EDT , ADDENDUM: 10/29/23 0346 IMPRESSION: Segmental subsegmental pulmonary embolus in the right middle lobe lateral segment . N.B. : The above Results were Read Back by Luz Maria Rodriguez MD to Rigoberto Andes , DO, and understanding confirmed on 10/29/2023 03:39:23 (ET). Electronically Signed: Luz Maria Rodriguez MD at 3:37 EDT , Charges/Coding Visit Charges Inpatient E&M: 81645 Init Hosp L2
[2023-10-29] MEDS: Acetaminophen 500 MG Tablet 1000 MG PO (10:34)
[2023-10-29 11:16] LABS: Hematocrit 31.6 % (37-47); Hemoglobin 10.2 g/dL (12.0-15.0); Mean Corp Hgb Conc 32.3 g/dL (32-36); Mean Corpuscular Hgb 28.6 pg (27.0-32.0); Mean Corpuscular Volume 88.5 fL (81-99); Mean Platelet Vol. 9.7 fl (6.2-12.0); Platelet Count 309 K/mm3 (150-450); RBC Distribution Width CV 13.4 % (11.6-14.6); RBC Distribution Width SD 43.4 fl (35.1-43.9); Red Blood Count 3.57 M/mm3 (4.2-5.4); White Blood Count 7.2 K/mm3 (4.4-11.0)
[2023-10-29 11:29] LABS: AST(SGOT) 17 U/L (15-37); Alanine Aminotransfer ALT/SGPT 28 U/L (13-56); Creatinine, Serum 0.69 mg/dL (0.55-1.02); EST Glomerular Filtration Rate 107 mL/min (>60); Est Glom Filt Rate - Afr Amer 129 mL/min (>60); Estimated Creatinine Clearance 127.02 ml/min; Uric Acid 5.3 mg/dL (2.6-6.0)
[2023-10-29 13:16] LABS: Protein, Urine (Random) 7.4 mg/dL (<11.9); Protein:Creat Ratio 404 mg/g CRE (0-200)
== END 2023-10-29 13:30 | disposition home or self-care (01) ==
LOC: ED 04:10 → WP 05:27 → WPOUT 10-30 08:43
PROVIDERS: Obstetrics & Gynecology; Emergency Provider Emergency Medicine; Visit Provider Obstetrics & Gynecology
DX: O88.23 Thromboembolism in the puerperium (principal); I26.99 Other pulmonary embolism without acute cor pulmonale; I26.93 Single subsegmental thrombotic pulmonary embolism without acute cor pulmonale; O99.893 Other specified diseases and conditions complicating puerperium; R07.89 Other chest pain; R51.9 Headache, unspecified; Z79.01 Long term (current) use of anticoagulants; O16.5 Unspecified maternal hypertension, complicating the puerperium
CPT/HCPCS: 96374; 96375; 36415; 70450; 71046; 71275; 80048; 80076; 82565; 82570; 83615; 84156; 84450; 84460; 84484; 84550; 85025; 85027; 85379; 85610; 85730; 93005; 94760; 99221; 99283; Q9967; A4216; G0378

== ENCOUNTER → 2023-12-04 | Outpatient (CLI) | payer BC, SELFPAY ==
[2023-12-10 11:09] LABS: HPV APTIMA, High Risk Negative (Negative)
== END | disposition home or self-care (01) ==
LOC: LABSPEC 16:05
PROVIDERS: Referring Provider Obstetrics & Gynecology; Visit Provider Obstetrics & Gynecology
DX: Z12.4 Encounter for screening for malignant neoplasm of cervix (principal)
CPT/HCPCS: 87624; 88175; G0145